=== PATIENT | female | born 1950 | race Caucasian/White ===

== ENCOUNTER 2018-03-22 20:24 | Emergency (ER) | payer MEDICARE, SELFPAY ==
[2018-03-22 20:26] VITALS: BP 181/97; PULSE 108; RESP 20; TEMP 36.7; O2SAT 98; BMI 22.4
--- NOTE | 2018-03-22 21:08 | US_ITS ---
STUDY: VENOUS DOPPLER ULTRASOUND - LEFT LOWER EXTREMITY REASON FOR EXAM: Female, 67 years old. Pain TECHNIQUE: Ultrasound evaluation of the deep vein system to include stewart-scale imaging and compression was performed. Stewart-scale imaging and Doppler sonographic evaluation, including duplex spectral analysis and qualitative color flow sonography, was performed. COMPARISON: None. FINDINGS: Common Femoral Vein: Normal compression, spontaneity and augmentation. Normal color Doppler. Common Femoral Vein/Greater Saphenous Junction: Normal compression, spontaneity and augmentation. Normal color Doppler. Deep Femoral Vein: Normal compression, spontaneity and augmentation. Normal color Doppler. Femoral Proximal: Normal compression, spontaneity and augmentation. Normal color Doppler. Femoral Middle: Normal compression, spontaneity and augmentation. Normal color Doppler. Femoral Distal: Normal compression, spontaneity and augmentation. Normal color Doppler. Popliteal Vein: Normal compression, spontaneity and augmentation. Normal color Doppler. Posterior Tibial Vein: Normal compression, spontaneity and augmentation. Normal color Doppler. Peroneal Vein: Normal compression, spontaneity and augmentation. Normal color Doppler. US/Venous Duplex Imag/Limited/Uni IMPRESSION: Normal venous Doppler ultrasound of the left lower extremity. Electronically Signed: Osmani Mary Beth, at 21:56 EDT Tel , Service support ,
--- NOTE | 2018-03-22 21:09 | ED.DCSUM_ITS ---
- ER Visit Summary Date of Service: 03/22/18 Chief Complaint: Atraumatic left lower leg lateral swelling about the ankle. History of Present Illness: The patient is a 67 F past medical history of hypertension and hypothyroidism from a prior thyroidectomy from thyroid cancer. Patient states that yesterday she noticed some minimal swelling in her left lateral ankle. Denies any fall trauma or fever. No pain with walking. Today noticed some discomfort in the posterior aspect of her left lower calf. Denies any redness. Absolutely no trauma. No prior history. No history of DVT or PE. No shortness of breath. No chest pain. She denies any recent travel, surgery, mobilization. There is no family history of clotting disorders that she is aware of. Physical Examination: Well-appearing older female. Vital signs are stable afebrile. She does not look septic or toxic. Pulse ox 90% on room air no signs of hypoxia. HEENT exam unremarkable. Neck nontender. Lungs clear to auscultation bilaterally. Heart regular rate and rhythm no murmur. Chest nontender. Abdomen soft nontender. She is moving all 4 extremities. They are neurovascularly intact. She has a strong DP pulse in her left foot. There is minimal swelling to the left lateral ankle and lower leg region. There is no calf tenderness. No cords. No significant edema. She has full range of motion to her entire left lower leg. Dorsi plantar flexion is intact. Normal touch sensation. Back exam is normal. There is no SI tenderness. Skin is normal without any rash or cellulitis. Neurologic exam normal. 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 Emergency Department Course and Treatment: Repeat exam patient is doing well. Again no signs of infection. No history of trauma and nontender. Treatment Plan: Follow-up with primary care physician. Disposition: Discharge Impression: Acute left lower leg atraumatic swelling of uncertain etiology. This note was generated with [employer] dictation software. It may contain incorrect words, spelling, and punctuation that were not noted in review of the chart prior to signing ED Disposition - Plan for ED Patient: Chief Complaint: Lower Extremity Injury Referrals: Billy Pulido III, MD [Primary Care Provider] -
--- NOTE | 2018-03-22 21:41 | ED.DEP ---
ED Disposition - Plan for ED Patient: Disposition: Home or Assisted Living Chief Complaint: Lower Extremity Injury Referrals: Billy Pulido III, MD [Primary Care Provider] - 1 Week if not improving Additional Instructions: Ultrasound of your left leg tonight showed no blood clot. Elevate your leg to decrease swelling. Call follow-up with Dr. Pulido if not improving. Return to the ER if redness or fever.
[2018-03-22 21:51] VITALS: RESP 16
--- NOTE | 2018-03-22 21:51 | ED.RN ---
REVIEWED D/C INSTRUCTIONS, FOLLOW UP CARE, AND S/S THAT WOULD WARRANT A RETURN TO THE ED WITH PT. PT VERBALIZED AN UNDERSTANDING AND DENIES FURTHER QUESTIONS FOR THIS RN. PT SKIN P/W/D, RESP EVEN AND UNLABORED, PT A&O X 3, NO DISTRESS NOTED. PT AMBULATED OUT OF ED, GAIT STEADY.
== END 2018-03-22 21:52 | disposition home or self-care (01) ==
PROVIDERS: Emergency Provider Emergency Medicine; Family Provider Family Medicine; PCP Family Medicine
DX: M79.89 Other specified soft tissue disorders (principal); I10 Essential (primary) hypertension; E03.9 Hypothyroidism, unspecified; Z85.850 Personal history of malignant neoplasm of thyroid; Z90.49 Acquired absence of other specified parts of digestive tract; Z90.710 Acquired absence of both cervix and uterus; Z79.899 Other long term (current) drug therapy
CPT/HCPCS: 93971; 99282

== ENCOUNTER 2018-08-15 11:11 | Emergency (ER) | payer MEDICARE, SELFPAY ==
[2018-08-15 11:12] VITALS: BP 154/97; PULSE 110; RESP 18; TEMP 36.6; O2SAT 98; BMI 21.0
--- NOTE | 2018-08-15 11:31 | ED.DCSUM_ITS ---
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 Patient states that she grabbed it and there was a chopper blade that was not wrapped and had lacerated her right thumb. Patient is left-hand dominant. Patient is up-to-date on tetanus. Patient is not on any blood thinners. Patient was seen at urgent care and was told she might need a stitch but they did not do those there so they advised her to come to the emergency department.] Physical Examination: [Right thumb-patient has a 1 cm laceration over the pad of the thumb with no active bleeding. She is neurovascular intact. No foreign bodies noted within the wound.] Test Results: [None indicated] Emergency Department Course and Treatment: [Patient tells me that she is afraid of needles and does not want to have a suture repair if she can avoid it. I feel it is reasonable that this does not need to be sutured. Patient will have the wound cleansed and Steri-Strips will be applied.] Treatment Plan: [Patient advised to follow-up with primary care physician in 3-5 days for wound check. patient to monitor for signs of infection such as increased redness, swelling, purulent drainage and to return if those issues developed.] Disposition: [Discharged home in stable condition] Impression: [Right thumb laceration 1 [id number] repair] This note was generated with [employer] dictation software. It may contain incorrect words, spelling, and punctuation that were not noted in review of the chart prior to signing ED Disposition - Plan for ED Patient: Chief Complaint: Laceration Referrals: Billy Pulido III, MD [Primary Care Provider] -
--- NOTE | 2018-08-15 11:31 | ED.DEP ---
ED Disposition - Plan for ED Patient: Chief Complaint: Laceration Instructions: ED Laceration Hand Referrals: Billy Pulido III, MD [Primary Care Provider] - 3-5 Days
--- OUTSIDE RECORDS SUMMARY | 2018-10-01 15:32 | XMS RPT_ITS ---
:1950 Author Organization OHIP Care Team Providers Name Role Phone CELESTE GIPSON (SMALL OFFSET PRINTER) Referring Unavailable CELESTE GIPSON (SMALL OFFSET PRINTER) Attending Unavailable CELESTE GIPSON (SMALL OFFSET PRINTER) Referring Unavailable CEBUL III, BILLY Tracey Referring Unavailable CEBUL III, BILLY Tracey Attending Unavailable CEBUL III, BILLY A Referring Unavailable CEBUL III, BILLY A Referring Unavailable CELESTE GIPSON (SMALL OFFSET PRINTER) Referring Unavailable CELESTE GIPSON (SMALL OFFSET PRINTER) Referring Unavailable CELESTE GIPSON (SMALL OFFSET PRINTER) Attending Unavailable RENZO RMAOS (PA) Attending Unavailable CEBUL III, BILLY A Referring Unavailable HARMAN SOARES Admitting Unavailable FANYHARMAN SINGER Attending Unavailable HARMAN SOARES Referring Unavailable CEBUL III, BILLY Tracey Attending Unavailable HARMAN SOARES Attending Unavailable CEBUL III, BILLY A Referring Unavailable Cebul III, Billy Primary Care Unavailable Serafin Smith Attending Unavailable Cebul III, Billy Primary Care Unavailable Fidel Alfaro Attending Unavailable PROBLEMS PROBLEMS DATE TYPE CONDITION / CODE ATTENDING STATUS SOURCE 07/09/2018 Active Encounter for NA Active [facility] screening mammogram [facility] [place] for malignant Repository neoplasm of breast / Z12.31(ICD-10) 02/20/2013 Active Postprocedural NA Active [facility] hypothyroidism / [place] E89.0(ICD-10) Repository 04/10/2018 Active Essential (primary) NA Active [facility] hypertension / [place] I10(ICD-10) Repository 04/10/2018 Active Effusion, left ankle NA Active [facility] / M25.472(ICD-10) [place] Repository 04/10/2018 Active Cough / R05(ICD-10) NA Active [facility] Repository 11/28/2017 Active Dysphagia, FANY, Active [facility] unspecified / HARMAN T [facility] R13.10(ICD-10) Repository PROCEDURES PROCEDURES No Procedure Records FoundRESULTS RESULTS DISCHARGE INSTRUCTION Observed: 08/15/2018 Status: F Source: [place] 11:32 AM [facility] Medical Records Department [address] [place] [address] Discharge Instruction 08/15/18 1131 MR#: [id number] Acct: [id number] Name: ALBA ALFARO Rep #: [id number] : 1950 68 From: Serafin Smith DO PCP: Billy Pulido III, MD Status: PRE ER ED Disposition - Plan for ED Patient: Chief Complaint: Laceration Instructions: ED Laceration Hand Referrals: Billy Pulido III, MD [Primary Care Provider] - 3-5 Days What to do if you have Problems For any increased pain, shortness of breath, bleeding, nausea or vomiting, chest pain, or any unexpected problems, contact your Primary Care Provider. Call [facility] ([phone]) or report to the closest Emergency Room. Call 911 if necessary. 08/15/18 113 <Electronically signed by Serafin Smith DO> Date Serafin Smith DO Cosigner Signature (If Indicated): Date CC: Billy Pulido III, MD EMERGENCY DEPARTMENT Observed: 08/15/2018 Status: F Source: [place] SUMMARY 11:31 AM [facility] Medical Records Department [address] [place] [address] Emergency Department Summary 08/15/18 1129 MR#: [id number] Acct: [id number] Name: ALBA ALFARO Rep #: [id number] : 1950 68 From: Serafin Smith DO PCP: Billy Pulido III, MD Status: PRE ER - ER Visit Summary Date of Service: 08/15/18 Chief Complaint: [Laceration right thumb] History of Present Illness: The patient is a 68 F [presents the emergency department complaint of a laceration to her right thumb that occurred this morning while she was on packaging a new relish blender. Patient states that she grabbed it and there was a chopper blade that was not wrapped and had lacerated her right thumb. Patient is left-hand dominant. Patient is up-to-date on tetanus. Patient is not on any blood thinners. Patient was seen at urgent care and was told she might need a stitch but they did not do those there so they advised her to come to the emergency department.] Physical Examination: [Right thumb-patient has a 1 cm laceration over the pad of the thumb with no active bleeding. She is neurovascular intact. No foreign bodies noted within the wound.] Test Results: [None indicated] Emergency Department Course and Treatment: [Patient tells me that she is afraid of needles and does not want to have a suture repair if she can avoid it. I feel it is reasonable that this does not need to be sutured. Patient will have the wound cleansed and Steri-Strips will be applied.] Treatment Plan: [Patient advised to follow-up with primary care physician in 3-5 days for wound check. patient to monitor for signs of infection such as increased redness, swelling, purulent drainage and to return if those issues developed.] Disposition: [Discharged home in stable condition] Impression: [Right thumb laceration 1 sp-Plonw-Cfbha repair] This note was generated with [employer] dictation software. It may contain incorrect words, spelling, and punctuation that were not noted in review of the chart prior to signing ED Disposition - Plan for ED Patient: Chief Complaint: Laceration Referrals: Billy Pulido III, MD [Primary Care Provider] - What to do if you have Problems For any increased pain, shortness of breath, bleeding, nausea or vomiting, chest pain, or any unexpected problems, contact your Primary Care Provider. Call [facility] ([phone]) or report to the closest Emergency Room. Call 911 if necessary. 08/15/18 1130 <Electronically signed by Serafin Smith DO> Date Serafin Smith DO Cosigner Signature (If Indicated): Date CC: Billy Pulido III, MD CNNURSE Observed: 07/31/2018 Status: COMPLETED Source: [place] 3:[address] [facility] [place] REPOSIT[facility] Nurse Visit (FAMPWS) ALBA ALFARO ([id number]) 1950 F Date Time Provider Department 07/31/18 3:15 PM [facility] During your visit today, we recorded the following information about you: Pulse Blood pressure 77/minute 115/70 Tatianna Mccoy FOOD BEVERAGE ATTENDANT 07/31/2018 3:21 PM Signed Manual Readin/80 Pulse: 78 BP Christian average: 115/70 P: 77 Repeat BP Check: 123/69 P82 #1 116/70 P76 #2 117/71 P78 #3 116/71 P78 #4 112/69 P78 #5 114/71 P77 #6 Reason for blood pressure check - Last BP elevated and Medication adjustment Patient is: Taking medication as prescribed Yes Took medication today Yes If no, date medication last taken N/A Experiencing side effects No BP was elevated at last appt 07/09/18. Was started on Losartan 25mg daily. Tolerating medication okay. Does note feeling lightheaded. Denies any chest pain, shortness of breath, or headaches. Drinks decaf usually; did have soda today. NO personal history of tobacco use; no current exposure. Alert and oriented. Pt has been identified by name and birthdate: Yes Allergies reviewed: Yes Latex allergy: no. Medication - prescribed and OTC reviewed and updated: Yes Do you need any prescription refills prior to your next visit: No Health Maintenance: Reviewed and not up to date and provider notified Patient advised to continue with current medications and would be contacted with any further instructions after review by PCP. Tatianna Mccoy LPN Referring Provider: BILLY PULIDO III [[id number]] Allergies As of Date: 07/31/2018 Noted Allergy Reaction CIPRO (CIPROFLOXACIN) 09/02/2005 10 - Anaphylaxis ESTRIOL MICRONIZED 01/29/2014 14 - Other: See Comments Comments: Chest pain, severe nausea CODEINE 02/20/2006 Comments: vomitting DARVOCET A500 (PROPOXYPHENE N-CURT*12/06/2005 11 - Vomiting Comments: also paralysis DIOVAN (VALSARTAN) 02/04/2009 7 - Swelling LISINOPRIL 05/01/2018 3 - Cough Comments: ACEI cough NORGESIC ([id number]*12/06/2005 ULTRAM (TRAMADOL HCL) 03/29/2006 10 - Anaphylaxis ZOLOFT (SERTRALINE HCL) 01/22/2007 1 - Mental Status Change Date Reviewed: 07/09/2018 Reviewed by: Aida ([facility]) BRANDON Cheung - Fully Assessed Reason for Visit: Blood Pressure Check [195] Primary Visit Diagnosis:Essential hypertension [I10] Prescriptions as of 07/31/2018 Sig: LOSARTAN 25 MG TABLET Take 1 tablet by mouth once d* LEVOTHYROXINE 100 MCG TABLET Take 1 tablet by mouth once d* HYDROCHLOROTHIAZIDE 12.5 MG C* Take 1 capsule by mouth once * CHOLECALCIFEROL (VITAMIN D3) * Take 1 tablet by mouth once d* VIACTIV 500 MG-200 UNIT-40 MC* Take one(1) tablet two(2) laura* Problem List As Of Date 07/31/2018 Noted Resolved Rheumatoid arthritis (HCC) [M06.9] IRRITABLE COLON [K58.9] INVALID FOR* PRIMARY HYPERPARATHYROIDISM [E21.0] INVALID FOR*06/23/2008 Calcaneal spur [M77.30] INVALID FOR*05/23/2016 History of thyroid cancer [Z85.850] INVALID FOR* More... Hearing loss in left ear [H91.92] INVALID FOR* Tinnitus [H93.19] INVALID FOR* Hypertension [I10] INVALID FOR* Symptomatic menopausal or female climacteric st*INVALID FOR* Postsurgical hypothyroidism [E89.0] INVALID FOR* Vitamin D deficiency [E55.9] INVALID FOR* Bilateral impacted cerumen [H61.23] INVALID FOR*05/23/2016 Encounter Status:Closed by TATIANNA MCCOY LPN on 07/31/18 PROGRESS Observed: 07/31/2018 Status: COMPLETED Source: [place] 3:07 PM [facility] RE[facility] HNO ID: [id number] Author: Tatianna Mccoy LPN Service: (none) Author Type: (none) Type: Progress Notes Filed: 07/31/2018 3:21 PM Note Text: Manual Readin/80 Pulse: 78 BP Christian average: 115/70 P: 77 Repeat BP Check: 123/69 P82 #1 116/70 P76 #2 117/71 P78 #3 116/71 P78 #4 112/69 P78 #5 114/71 P77 #6 Reason for blood pressure check - Last BP elevated and Medication adjustment Patient is: Taking medication as prescribed Yes Took medication today Yes If no, date medication last taken N/A Experiencing side effects No BP was elevated at last appt 07/09/18. Was started on Losartan 25mg daily. Tolerating medication okay. Does note feeling lightheaded. Denies any chest pain, shortness of breath, or headaches. Drinks decaf usually; did have soda today. NO personal history of tobacco use; no current exposure. Alert and oriented. Pt has been identified by name and birthdate: Yes Allergies reviewed: Yes Latex allergy: no. Medication - prescribed and OTC reviewed and updated: Yes Do you need any prescription refills prior to your next visit: No Health Maintenance: Reviewed and not up to date and provider notified Patient advised to continue with current medications and would be contacted with any further instructions after review by PCP. Tatianna Mccoy LPN PROGRESS Observed: 07/09/2018 Status: COMPLETED Source: [place] 4:[address] [facility] [place] RE[facility]IT[facility] HNO ID: [id number] Author: Billy Pulido III Service: (none) Author Type: Physician Type: Progress Notes Filed: 07/09/2018 9:28 PM Note Text: SUBJECTIVE: This is a 68 year old female that is here today for 1. lightheaded episodes over past wk. head in a cloud--worse after lifting head up from flexed head. 2. Has ch problems sleeping for mos. Melatonin w/o benefit. 3. s/p hysterectomy , ovaries remain. Had been on estrogen replacement for many yrs , though it was d/c ed several yrs ago. PAST MEDICAL HISTORY Diagnosis Date - Disorder of bone and cartilage, unspecified - Essential hypertension, benign 09/15/2011 - Hearing loss in left ear 09/15/2011 - Hemorrhage of rectum and anus - Malignant neoplasm of thyroid gland (HCC) - Mental disorder - Myalgia and myositis, unspecified - Rheumatoid arthritis(714.0) - Vitamin D deficiency 11/27/2014 Current Outpatient Prescriptions on File Prior to Visit: levothyroxine (SYNTHROID) 100 mcg tablet Take 1 tablet by mouth once daily. Take on empty stomach Hydrochlorothiazide 12.5 mg capsule Take 1 capsule by mouth once daily. Cholecalciferol, Vitamin D3, 2,000 unit cap Take 1 tablet by mouth once daily. ca carbonate/vitamin d3/vit k(VIACTIV 500 MG-200 UNIT-40 MCG TAB) Take one(1) tablet two(2) times daily. No current facility-administered medications on file prior to visit. FAMILY HISTORY Problem Relation Age of Onset - Colon Cancer Brother Colon CA not primary - Cancer Father LUNG- at age 57 Social History Substance Use Topics - Smoking status: Never Smoker - Smokeless tobacco: Never Used - Alcohol use No BP 143/87 Pulse 85 Resp 16 Wt 54 kg (119 lb) BMI 20.43 kg/m? . OBJECTIVE: APPEARANCE Well appearing, alert, in no acute distress, well-hydrated, well nourished. EYES PERRLA, conjunctiva and sclera normal. EARS Cerumen impaction bilaterally NECK Supple, no adenopathy; thyroid symmetric, normal size, no bruits HEART RRR with normal S1 and S2, no murmurs, no gallops, no JVD appreciated LUNG clear to auscultation NEURO Awake, alert and oriented x 3, Normal gait and No involuntary motions. Lab Results for ALBA ALFARO ( ) as of 07/09/2018 16:52 Ref. Range 06/26/2018 08:10 06/26/2018 08:11 Sodium Latest Ref Range: 136 - 144 mmol/L 138 Potassium Latest Ref Range: 3.7 - 5.1 mmol/L 3.7 Chloride Latest Ref Range: 97 - 105 mmol/L 100 CO2 Latest Ref Range: 22 - 30 mmol/L 27 BUN Latest Ref Range: 7 - 21 mg/dL 11 Creatinine Latest Ref Range: 0.58 - 0.96 mg/dL 0.44 (L) Glucose Latest Ref Range: 74 - 99 mg/dL 110 (H) Calcium Latest Ref Range: 8.5 - 10.2 mg/dL 9.8 Anion Gap Latest Units: mmol/L 11 eGFR- Unknown >60 eGFR-All Other Races Latest Units: . >60 Free T4 Latest Ref Range: 0.9 - 1.7 ng/dL 1.6 TSH Latest Ref Range: 0.400 - 5.500 uU/mL 1.570 ASSESSMENT: Cerumen impaction bilaterally Chronic insomnia with anxiety Hypertension PLAN: add losartan 25mg daily--nurse bp check in 2 wks ear lavage bilaterally--successful without complication try to eat less sugar and avoid skipping meals same other medications Billy Pulido III MD CNOV Observed: 07/09/2018 Status: COMPLETED Source: [place] 4:20 PM [facility] REPOSITORY Office Visit (FAMPWS) ALBA ALFARO ([id number]) 1950 F Date Time Provider Department 07/09/18 4:20 PM BILLY PULIDO III During your visit today, we recorded the following information about you: Pulse Respiration Blood pressure Weight 85/minute 16/minute 143/87 54 kg Billy Pulido III MD 07/09/2018 9:28 PM Signed SUBJECTIVE: This is a 68 year old female that is here today for 1. lightheaded episodes over past wk. head in a cloud--worse after lifting head up from flexed head. 2. Has ch problems sleeping for mos. Melatonin w/o benefit. 3. s/p hysterectomy , ovaries remain. Had been on estrogen replacement for many yrs , though it was d/c ed several yrs ago. PAST MEDICAL HISTORY Diagnosis Date - Disorder of bone and cartilage, unspecified - Essential hypertension, benign 09/15/2011 - Hearing loss in left ear 09/15/2011 - Hemorrhage of rectum and anus - Malignant neoplasm of thyroid gland (HCC) - Mental disorder - Myalgia and myositis, unspecified - Rheumatoid arthritis(714.0) - Vitamin D deficiency 11/27/2014 Current Outpatient Prescriptions on File Prior to Visit: levothyroxine (SYNTHROID) 100 mcg tablet Take 1 tablet by mouth once daily. Take on empty stomach Hydrochlorothiazide 12.5 mg capsule Take 1 capsule by mouth once daily. Cholecalciferol, Vitamin D3, 2,000 unit cap Take 1 tablet by mouth once daily. ca carbonate/vitamin d3/vit k(VIACTIV 500 MG-200 UNIT-40 MCG TAB) Take one(1) tablet two(2) times daily. No current facility-administered medications on file prior to visit. FAMILY HISTORY Problem Relation Age of Onset - Colon Cancer Brother Colon CA not primary - Cancer Father LUNG- at age 57 Social History Substance Use Topics - Smoking status: Never Smoker - Smokeless tobacco: Never Used - Alcohol use No BP 143/87 Pulse 85 Resp 16 Wt 54 kg (119 lb) BMI 20.43 kg/m? . OBJECTIVE: APPEARANCE Well appearing, alert, in no acute distress, well- hydrated, well nourished. EYES PERRLA, conjunctiva and sclera normal. EARS Cerumen impaction bilaterally NECK Supple, no adenopathy; thyroid symmetric, normal size, no bruits HEART RRR with normal S1 and S2, no murmurs, no gallops, no JVD appreciated LUNG clear to auscultation NEURO Awake, alert and oriented x 3, Normal gait and No involuntary motions. Lab Results for ALBA ALFARO ( ) as of 07/09/2018 16:52 Ref. Range 06/26/2018 08:10 06/26/2018 08:11 Sodium Latest Ref Range: 136 - 144 mmol/L 138 Potassium Latest Ref Range: 3.7 - 5.1 mmol/L 3.7 Chloride Latest Ref Range: 97 - 105 mmol/L 100 CO2 Latest Ref Range: 22 - 30 mmol/L 27 BUN Latest Ref Range: 7 - 21 mg/dL 11 Creatinine Latest Ref Range: 0.58 - 0.96 mg/dL 0.44 (L) Glucose Latest Ref Range: 74 - 99 mg/dL 110 (H) Calcium Latest Ref Range: 8.5 - 10.2 mg/dL 9.8 Anion Gap Latest Units: mmol/L 11 eGFR- Unknown >60 eGFR-All Other Races Latest Units: . >60 Free T4 Latest Ref Range: 0.9 - 1.7 ng/dL 1.6 TSH Latest Ref Range: 0.400 - 5.500 uU/mL 1.570 ASSESSMENT: Cerumen impaction bilaterally Chronic insomnia with anxiety Hypertension PLAN: add losartan 25mg daily--nurse bp check in 2 wks ear lavage bilaterally--successful without complication try to eat less sugar and avoid skipping meals same other medications FABIO Rachel MD, III MD 07/09/2018 5:01 PM Signed PLAN: add losartan 25mg daily--nurse bp check in 2 wks ear lavage bilaterally try to eat less sugar and avoid skipping meals same other medications Billy Pulido III MD Referring Provider: SELF [[id number]] Allergies As of Date: 07/09/2018 Noted Allergy Reaction CIPRO (CIPROFLOXACIN) 09/02/2005 10 - Anaphylaxis ESTRIOL MICRONIZED 01/29/2014 14 - Other: See Comments Comments: Chest pain, severe nausea CODEINE 02/20/2006 Comments: vomitting DARVOCET A500 (PROPOXYPHENE N-CURT*12/06/2005 11 - Vomiting Comments: also paralysis DIOVAN (VALSARTAN) 02/04/2009 7 - Swelling LISINOPRIL 05/01/2018 3 - Cough Comments: ACEI cough NORGESIC ([id number]*12/06/2005 ULTRAM (TRAMADOL HCL) 03/29/2006 10 - Anaphylaxis ZOLOFT (SERTRALINE HCL) 01/22/2007 1 - Mental Status Change Date Reviewed: 07/09/2018 Reviewed by: Aida ([facility]) BRANDON Cheung - Fully Assessed Reason for Visit: Dizziness [36] Cmt: x1 week, intermittent Primary Visit Diagnosis:Essential hypertension [I10] Other Visit Diagnoses:Episodic lightheadedness [R42] Bilateral impacted cerumen [H61.23] Order(s):losartan (COZAAR) 25 mg tabletTake 1 tablet by mouth once daily.Disp: 30 tabletRfl: 11 Prescriptions as of 07/09/2018 Sig: LOSARTAN 25 MG TABLET Take 1 tablet by mouth once d* LEVOTHYROXINE 100 MCG TABLET Take 1 tablet by mouth once d* HYDROCHLOROTHIAZIDE 12.5 MG C* Take 1 capsule by mouth once * CHOLECALCIFEROL (VITAMIN D3) * Take 1 tablet by mouth once d* VIACTIV 500 MG-200 UNIT-40 MC* Take one(1) tablet two(2) laura* Problem List As Of Date 07/09/2018 Noted Resolved Rheumatoid arthritis (HCC) [M06.9] IRRITABLE COLON [K58.9] INVALID FOR* PRIMARY HYPERPARATHYROIDISM [E21.0] INVALID FOR*06/23/2008 Calcaneal spur [M77.30] INVALID FOR*05/23/2016 History of thyroid cancer [Z85.850] INVALID FOR* More... Hearing loss in left ear [H91.92] INVALID FOR* Tinnitus [H93.19] INVALID FOR* Hypertension [I10] INVALID FOR* Symptomatic menopausal or female climacteric st*INVALID FOR* Postsurgical hypothyroidism [E89.0] INVALID FOR* Vitamin D deficiency [E55.9] INVALID FOR* Bilateral impacted cerumen [H61.23] INVALID FOR*05/23/2016 Other instructions from your clinician: PLAN: add losartan 25mg daily--nurse bp check in 2 wks ear lavage bilaterally try to eat less sugar and avoid skipping meals same other medications Billy Pulido III MD Prescriptions ordered this encounter Disp Refills Start End LOSARTAN 25 MG TABLET 30 t* 11 07/09/2018 Route: ORAL Sig: Take 1 tablet by mouth once daily. Medications Discontinued During This Encounter triamcinolone acetonide (KENALOG) 0.* 30 g 0 04/10/2018 07/09/2018 Route: TOPICAL Sig: Apply 1 application to affected area three times daily. Apply sparingly to area for rash/itching. Disc: Discontinued by Patient ibuprofen (MOTRIN) 600 mg tablet 50 t* 1 04/23/2018 07/09/2018 Route: ORAL Sig: Take 1 tablet by mouth every 6 hours as needed for Pain. Disc: Discontinued by Patient Encounter Status:Closed by BILLY PULIDO III, MD on 07/09/18 CNCO Observed: 07/09/2018 Status: COMPLETED Source: [place] 9:58 AM [facility] REPOSITORY O ID: [id number] Author: Mammography Coordinator Service: (none) Author Type: Physician Type: Letter Filed: 07/10/2018 11:32 PM Note Text: July 09, 2018 PID: [id number] Alba Alfaro [address] [place] [address] Dear Ms. Alfaro, We are pleased to inform you that the results of your recent breast imaging exam on 07/09/2018 are normal. Early detection of cancer is very important. We also understand recommendations regarding breast cancer screening are controversial. Please discuss with your primary care provider which strategy is best for you and whether a mammogram is right for you. Your imaging studies and report will be kept on file at [facility] as part of your permanent medical record and are available for your continuing care. Thank you for allowing us to help in meeting your health care needs. Sincerely, Dr. Verdugo Interpreting Radiologist [facility] (Normal over 40) SHARYN SCREENING Observed: 07/09/2018 Status: F Source: [place] 7:36 AM [facility] REPOSITORY * * *Final Report* * * DATE OF EXAM: Jul 09 2018 7:36AM [facility] 0581 - [facility] SCREENING / PROCEDURE REASON: Screening breast examination * * * * Physician Interpretation * * * * RESULT: #[id number] - [facility] SCREENING BILATERAL DIGITAL SCREENING MAMMOGRAM WITH CAD: 07/09/2018 HISTORY: Screening Breast Examination. RESULT: TECHNIQUE: The study was acquired using full field digital technology and interpreted from soft copy. Current study was also evaluated with a Computer Aided Detection (CAD). Comparison is made to exams dated: 06/19/2017 mammogram, 06/07/2016 mammogram - [facility], 05/24/2016 mammogram, 08/15/2014 mammogram, 07/02/2013 mammogram, and 06/06/2012 mammogram - [facility]. There are scattered fibroglandular elements in both breasts. No significant masses, calcifications, or other findings are seen in either breast. There has been no significant interval change. IMPRESSION: NEGATIVE There is no mammographic evidence of malignancy. A 1 year screening mammogram is recommended. The exam was reviewed by a staff physician. nida Carpenter M.D., M.D./zain:07/09/2018 09:58:02 Link Trainer Mechanic: Mackenzie CLEMENTE (R)), [facility] letter sent: Normal over 40 Mammogram BI-RADS: 1 Negative Multiple national specialty organizations have released breast cancer screening guidelines for women at average risk for developing breast cancer - guidelines that are based on both evidence and opinion, yet differ on when to start and how often to screen for breast cancer. With representation from Breast Imaging, Internal Medicine, Women's Health, Family Medicine, and Medical/Surgical Oncology, the [facility] has carefully reviewed the data and reached the following consensus: 1) All women should engage in shared decision-making with their providers to decide when to start and how often to screen; 2) All women should have the opportunity to start screening mammography at age 40; 3) For women ages 45-55, we recommend annual screening mammograms; 4) For women ages 55 and over, we support both the transition from an annual to a biennial interval if this aligns more with patient's values and preferences, or continuation with annual screening; 5) All women should discuss with their providers when to stop screening mammograms. Flight Information Expediter: Zain Transcribe Date/Time: Jul 09 2018 7:24A Dictated by: CHA FARMER MD This examination was interpreted and the report reviewed and electronically signed by: PADMINI VERDUGO MD on Jul 09 2018 9:58AM EST [id number] PROGRESS Observed: 06/26/2018 Status: COMPLETED Source: [place] 6:[address] [facility] REPOSITORY HNO ID: [id number] Author: Billy Pulido III Service: (none) Author Type: Physician Type: Progress Notes Filed: 06/26/2018 6:57 PM Note Text: Alba, The blood sugar is a little high so I recommend healthy weight losing diet and regular exercise eat less sugar, bread, potato, pasta, rice, corn, corn syrup, saturated fats The other lab results are normal. May recheck fasting blood sugar in 6-12 months. Billy Pulido III, MD, FAAFP BASIC METABOLIC PANL Collected: 06/26/2018 Status: F Source: [place] 8:11 AM [facility] REPOSITORY TYPE CODE TESTS RESULT OUT OF REFERENCE UNITS RANGE LAB GLU 74-99 mg/dL Glucose High 110 LAB BUN 7-21 mg/dL BUN 11 LAB CRET 0.58-0.96 mg/dL Low Creatinine 0.44 LAB NA 136-144 mmol/L Sodium 138 LAB K 3.7-5.1 mmol/L Potassium 3.7 LAB CL 97-105 mmol/L Chloride 100 LAB CO2 22-30 mmol/L CO2 27 LAB AGAP mmol/L Anion Gap 11 LAB CA 8.5-10.2 mg/dL Calcium, Total 9.8 LAB GFRAA eGFR- >60 Amer. LAB GFRNAA . eGFR-All Other Races >60 Result Comment: eGFR (Estimated GFR) Units of measure: mL/min/1.73 meters squared eGFR is derived from the reexpressed MDRD Study equation using the following parameters: serum creatinine, age, gender and race. The creatinine assay has been calibrated to be traceable to IDMS. An eGFR <60 mL/min/1.73m2 for >3 months is consistent with chronic kidney disease. Refer to KDOQI guidelines for clinical interpretation. In patients with unstable renal function, e.g. those with acute kidney injury, the eGFR may not accurately reflect actual GFR. TSH Collected: 06/26/2018 Status: F Source: [place] 8:10 AM [facility] REPOSITORY TYPE CODE TESTS RESULT OUT OF RANGE REFERENCE UNITS LAB TSH 0.400-5.500 uU/mL TSH 1.570 Performed By: #### TSH, FT4 #### [facility] [address], [place] [address] FREE T4 Collected: 06/26/2018 Status: F Source: [place] 8:10 AM [facility] REPOSITORY TYPE CODE TESTS RESULT OUT OF RANGE REFERENCE UNITS LAB FT4 0.9-1.7 ng/dL Free T4 1.6 Performed By: #### TSH, FT4 #### [facility] [address], [place] [address] CNOV Observed: 06/26/2018 Status: COMPLETED Source: [place] 8:00 AM [facility] REPOSITORY Office Visit (LABMOB) ALBA ALFARO ([id number]) 1950 F Date Time Provider Department 06/26/18 8:00 AM LAB [facility] M[facility] LABMOB During your visit today, we recorded the following information about you: Billy Pulido III MD 06/26/2018 6:57 PM Signed Alba, The blood sugar is a little high so I recommend healthy weight losing diet and regular exercise eat less sugar, bread, potato, pasta, rice, corn, corn syrup, saturated fats The other lab results are normal. May recheck fasting blood sugar in 6-12 months. Billy Pulido III, MD, FAAFP Referring Provider: BILLY PULIDO III [[id number]] Allergies As of Date: 06/26/2018 Noted Allergy Reaction CIPRO (CIPROFLOXACIN) 09/02/2005 10 - Anaphylaxis ESTRIOL MICRONIZED 01/29/2014 14 - Other: See Comments Comments: Chest pain, severe nausea CODEINE 02/20/2006 Comments: vomitting DARVOCET A500 (PROPOXYPHENE N-CURT*12/06/2005 11 - Vomiting Comments: also paralysis DIOVAN (VALSARTAN) 02/04/2009 7 - Swelling LISINOPRIL 05/01/2018 3 - Cough Comments: ACEI cough NORGESIC ([id number]-[id number]*12/06/2005 ULTRAM (TRAMADOL HCL) 03/29/2006 10 - Anaphylaxis ZOLOFT (SERTRALINE HCL) 01/22/2007 1 - Mental Status Change Date Reviewed: 05/01/2018 Reviewed by: Sravani Boogie LPN - Fully Assessed Visit Diagnoses:Postsurgical hypothyroidism [E89.0] Essential hypertension [I10] Order(s):TSH BLD [SQTSH] Order #: [id number]. #:[id number] [id number] FREE/FREE THYROX [SQFT4] Order #: [id number]. #:[id number] BASIC METABOLIC PNL [SQBMP] Order #: [id number]. #:[id number] Prescriptions as of 06/26/2018 Sig: IBUPROFEN 600 MG TABLET Take 1 tablet by mouth every * LEVOTHYROXINE 100 MCG TABLET Take 1 tablet by mouth once d* TRIAMCINOLONE ACETONIDE 0.1 %* Apply 1 application to affect* HYDROCHLOROTHIAZIDE 12.5 MG C* Take 1 capsule by mouth once * CHOLECALCIFEROL (VITAMIN D3) * Take 1 tablet by mouth once d* VIACTIV 500 MG-200 UNIT-40 MC* Take one(1) tablet two(2) laura* Problem List As Of Date 06/26/2018 Noted Resolved Rheumatoid arthritis (HCC) [M06.9] IRRITABLE COLON [K58.9] INVALID FOR* PRIMARY HYPERPARATHYROIDISM [E21.0] INVALID FOR*06/23/2008 Calcaneal spur [M77.30] INVALID FOR*05/23/2016 History of thyroid cancer [Z85.850] INVALID FOR* More... Hearing loss in left ear [H91.92] INVALID FOR* Tinnitus [H93.19] INVALID FOR* Hypertension [I10] INVALID FOR* Symptomatic menopausal or female climacteric st*INVALID FOR* Postsurgical hypothyroidism [E89.0] INVALID FOR* Vitamin D deficiency [E55.9] INVALID FOR* Bilateral impacted cerumen [H61.23] INVALID FOR*05/23/2016 Encounter Status:Closed by BILLY PULIDO III, MD on 06/27/18 CNNURSE Observed: 06/04/2018 Status: COMPLETED Source: [place] 1:30 PM [facility] REPOSITORY Nurse Visit (FAMPWS) ALBA ALFARO ([id number]) 1950 F Date Time Provider Department 06/04/18 1:30 PM [facility] NURSE FAMPWS During your visit today, we recorded the following information about you: Pulse Blood pressure 96/minute 116/73 Tatianna Mccoy LPN 06/04/2018 1:42 PM Signed Manual Readin/86 Pulse: 92 BP Christian average: 116/73 P: 96 Repeat BP Check: 124/75 P93 #1 109/73 P95 #2 125/73 P95 #3 109/74 P95 #4 113/76 P97 #5 125/71 P96 #6 Reason for blood pressure check - Last BP elevated Patient is: Taking medication as prescribed Yes Took medication today Yes If no, date medication last taken N/A Experiencing side effects No BP was borderline elevated at last appt with Celeste Gipson NP, on 05/01/18. Had medication changed on 04/10/18; was having cough with the Lisinopril portion of combo medication. Has since been only taking the HCTZ 12.5mg daily. Tolerating medication well. Does state that she only has mild cough; mostly at night or when laying down. Denies any chest pain, shortness of breath, dizziness, or headaches. Drinks decaf. No personal history of tobacco use; no current exposure. Alert and oriented. Pt has been identified by name and birthdate: Yes Allergies reviewed: Yes Latex allergy: no. Medication - prescribed and OTC reviewed and updated: Yes Do you need any prescription refills prior to your next visit: No Health Maintenance: Reviewed and not up to date and provider notified Patient advised to continue with current medications and would be contacted with any further instructions after review by Celeste Gipson NP. Tatianna Mccoy LPN Referring Provider: CELESTE GIPSON (TIMUR) [[id number]] Allergies As of Date: 06/04/2018 Noted Allergy Reaction CIPRO (CIPROFLOXACIN) 09/02/2005 10 - Anaphylaxis ESTRIOL MICRONIZED 01/29/2014 14 - Other: See Comments Comments: Chest pain, severe nausea CODEINE 02/20/2006 Comments: vomitting DARVOCET A500 (PROPOXYPHENE N-CURT*12/06/2005 11 - Vomiting Comments: also paralysis DIOVAN (VALSARTAN) 02/04/2009 7 - Swelling LISINOPRIL 05/01/2018 3 - Cough Comments: ACEI cough NORGESIC ([id number]*12/06/2005 ULTRAM (TRAMADOL HCL) 03/29/2006 10 - Anaphylaxis ZOLOFT (SERTRALINE HCL) 01/22/2007 1 - Mental Status Change Date Reviewed: 05/01/2018 Reviewed by: Sravani Boogie LPN - Fully Assessed Reason for Visit: Blood Pressure Check [195] Primary Visit Diagnosis:Essential hypertension [I10] Prescriptions as of 06/04/2018 Sig: IBUPROFEN 600 MG TABLET Take 1 tablet by mouth every * LEVOTHYROXINE 100 MCG TABLET Take 1 tablet by mouth once d* TRIAMCINOLONE ACETONIDE 0.1 %* Apply 1 application to affect* HYDROCHLOROTHIAZIDE 12.5 MG C* Take 1 capsule by mouth once * CHOLECALCIFEROL (VITAMIN D3) * Take 1 tablet by mouth once d* VIACTIV 500 MG-200 UNIT-40 MC* Take one(1) tablet two(2) laura* Problem List As Of Date 06/04/2018 Noted Resolved Rheumatoid arthritis (HCC) [M06.9] IRRITABLE COLON [K58.9] INVALID FOR* PRIMARY HYPERPARATHYROIDISM [E21.0] INVALID FOR*06/23/2008 Calcaneal spur [M77.30] INVALID FOR*05/23/2016 History of thyroid cancer [Z85.850] INVALID FOR* More... Hearing loss in left ear [H91.92] INVALID FOR* Tinnitus [H93.19] INVALID FOR* Hypertension [I10] INVALID FOR* Symptomatic menopausal or female climacteric st*INVALID FOR* Postsurgical hypothyroidism [E89.0] INVALID FOR* Vitamin D deficiency [E55.9] INVALID FOR* Bilateral impacted cerumen [H61.23] INVALID FOR*05/23/2016 Encounter Status:Closed by TATIANNA MCCOY LPN on 06/04/18 PROGRESS Observed: 06/04/2018 Status: COMPLETED Source: [place] 1:[address] [facility] REPOSITORY O ID: [id number] Author: Tatianna Mccoy LPN Service: (none) Author Type: (none) Type: Progress Notes Filed: 06/04/2018 1:42 PM Note Text: Manual Readin/86 Pulse: 92 BP Christian average: 116/73 P: 96 Repeat BP Check: 124/75 P93 #1 109/73 P95 #2 125/73 P95 #3 109/74 P95 #4 113/76 P97 #5 125/71 P96 #6 Reason for blood pressure check - Last BP elevated Patient is: Taking medication as prescribed Yes Took medication today Yes If no, date medication last taken N/A Experiencing side effects No BP was borderline elevated at last appt with Celeste Gipson NP, on 05/01/18. Had medication changed on 04/10/18; was having cough with the Lisinopril portion of combo medication. Has since been only taking the HCTZ 12.5mg daily. Tolerating medication well. Does state that she only has mild cough; mostly at night or when laying down. Denies any chest pain, shortness of breath, dizziness, or headaches. Drinks decaf. No personal history of tobacco use; no current exposure. Alert and oriented. Pt has been identified by name and birthdate: Yes Allergies reviewed: Yes Latex allergy: no. Medication - prescribed and OTC reviewed and updated: Yes Do you need any prescription refills prior to your next visit: No Health Maintenance: Reviewed and not up to date and provider notified Patient advised to continue with current medications and would be contacted with any further instructions after review by Celeste Gipson NP. Tatianna Darius FRANCO PROGRESS Observed: 05/01/2018 Status: COMPLETED Source: [place] 7:[address] [facility] REPOSITORY O ID: [id number] Author: Celeste Javed (Timur) Brandan Service: (none) Author Type: Nurse Practitioner Type: Progress Notes Filed: 05/01/2018 8:12 AM Note Text: Chief Complaint Patient presents with: Recheck: left ankle edema, bp and cough HPI Alba Alfaro is a 67 year old female who presents here today for Above Complaints. Recheck cough and BP. Last visit medication adjustment done due to ACEI cough with Lisinopril. Was not able to speak in complete sentences due to Cough unrelated to illness. Since stopping Lisinopril she's noticed significant improvement in her cough. Still occasional dry cough at night. She maintains on HCTZ. Tolerating well, denies side effects. Left ankle edema: resolved, no pain. Left arm pain: last visit received Tdap left deltoid. Since then she has had significant left arm pain, difficulty moving due to pain. Has been taking NSAIDs on regular basis with mild benefit. The ROS is otherwise negative. Past medical history, appointments, medications, allergies reviewed. Patient Allergies ALLERGIES Allergen Reactions - Cipro [Ciprofloxaci* Anaphylaxis - Estriol Micronized Other: See Comments Chest pain, severe nausea - Codeine vomitting - Darvocet A500 [Prop* Vomiting also paralysis - Diovan [Valsartan] Swelling - Norgesic [Orphenadr* - Ultram [Tramadol Hc* Anaphylaxis - Zoloft [Sertraline * Mental Status Change Current Medications Current Outpatient Prescriptions on File Prior to Visit: ibuprofen (MOTRIN) 600 mg tablet Take 1 tablet by mouth every 6 hours as needed for Pain. levothyroxine (SYNTHROID) 100 mcg tablet Take 1 tablet by mouth once daily. Take on empty stomach triamcinolone acetonide (KENALOG) 0.1 % cream Apply 1 application to affected area three times daily. Apply sparingly to area for rash/itching. Hydrochlorothiazide 12.5 mg capsule Take 1 capsule by mouth once daily. Cholecalciferol, Vitamin D3, 2,000 unit cap Take 1 tablet by mouth once daily. ca carbonate/vitamin d3/vit k(VIACTIV 500 MG-200 UNIT-40 MCG TAB) Take one(1) tablet two(2) times daily. lansoprazole (PREVACID) 30 mg capsule Take 1 capsule by mouth once daily. No current facility-administered medications on file prior to visit. Previous Medical History PAST MEDICAL HISTORY Diagnosis Date - Disorder of bone and cartilage, unspecified - Essential hypertension, benign 09/15/2011 - Hearing loss in left ear 09/15/2011 - Hemorrhage of rectum and anus - Malignant neoplasm of thyroid gland (HCC) - Mental disorder - Myalgia and myositis, unspecified - Rheumatoid arthritis(714.0) - Vitamin D deficiency 11/27/2014 Previous Surgical History PAST SURGICAL HISTORY Procedure Laterality Date - COLONOSCOP W/ OR W/O [facility] SPEC 05/28/2007 Colonoscopy-repeat in - EGD W/O OR W/BRUSH/WASH 11/28/2017 reflux esophagitis, repeat EGD in 2-3 years - PAST SURGICAL HISTORY OF breast cyst - PAST SURGICAL HISTORY OF partial resection right foot- 3rd toe - REMOVAL GALLBLADDER '01 or '02 ?? - REMOVAL OF TONSILS,<12 Y/O - THYROIDECTOMY 05/03/01 - TOTAL ABDOM HYSTERECTOMY Family History FAMILY HISTORY Problem Relation Age of Onset - Colon Cancer Brother Colon CA not primary - Cancer Father LUNG- at age 57 Social History Social History Marital status: Spouse name: Years of education: Number of children: Social History Main Topics Smoking status: Never Smoker Smokeless tobacco: Never Used Alcohol use: No Drug use: No Sexual activity: Not Currently EXAM: BP 132/80 (BP Site: Right Arm, BP Position: Sitting, BP Cuff Size: Regular Adult) Temp 36.4 ?C (97.5 ?F) (Tympanic) Resp 16 Wt 56.7 kg (125 lb) BMI 21.46 kg/m? General Appearance: Well appearing, alert, in no acute distress, well-hydrated, well nourished.. Neck: Supple, no adenopathy; thyroid symmetric, normal size, Lungs: Lungs clear to auscultation. No wheezing, rhonchi, rales. No cough noted throughout visit Heart: RRR without murmur, gallop, or rubs. No ectopy. Extremities: No deformities, edema, skin discoloration, clubbing or cyanosis. Good capillary refill. + pain with abduction, able to lift arm to shoulder level. ASSESSMENT/PLAN: 1. Arm pain, musculoskeletal, left - ICD9: 729.5, ICD10: M79.602 (primary diagnosis) - Will do short prednisone burst, may use Tylenol and hold Ibuprofen while taking Prednisone. Then if needed my resume Ibuprofen. - Call if sx persist, may consider PHYSICAL THERAPY. - PREDNISONE 20 MG TABLET 2. Essential hypertension - ICD9: 401.9, ICD10: I10 - fair control - Continue current medication(s) - Recommended regular aerobic exercise. - Recommend home blood pressure monitoring, to bring results in on next visit - Recheck in 1 month, sooner should new symptoms or problems arise. Nurse visit - Goal of BP <130/80 3. Cough - ICD9: 786.2, ICD10: R05 - Resolving Celeste Gipson, MSN HOOKER MACHINE TENDER.CARE ASSISTANT CNOV Observed: 05/01/2018 Status: COMPLETED Source: [place] 7:40 AM [facility] REPOSITORY [facility] ALBA ALF[facility]O ([id number]) 1950 F Date Time Provider Department 05/01/18 7:40 AM CELESTE GIPSON (SMALL OFFSET PRINTER) ERVIN During your visit today, we recorded the following information about you: Temperature Respiration Blood pressure Weight 97.5 degrees 16/minute 132/80 56.7 kg Celeste Gipson, MSN [employer]OOK[employer] MACHINE TENDER.CARE ASSISTANT 05/01/2018 8:12 AM Signed Chief Complaint Patient presents with: Recheck: left ankle edema, bp and cough HPI Alba Alfaro is a 67 year old female who presents here today for Above Complaints. Recheck cough and BP. Last visit medication adjustment done due to ACEI cough with Lisinopril. Was not able to speak in complete sentences due to Cough unrelated to illness. Since stopping Lisinopril she's noticed significant improvement in her cough. Still occasional dry cough at night. She maintains on HCTZ. Tolerating well, denies side effects. Left ankle edema: resolved, no pain. Left arm pain: last visit received Tdap left deltoid. Since then she has had significant left arm pain, difficulty moving due to pain. Has been taking NSAIDs on regular basis with mild benefit. The ROS is otherwise negative. Past medical history, appointments, medications, allergies reviewed. Patient Allergies ALLERGIES Allergen Reactions - Cipro [Ciprofloxaci* Anaphylaxis - Estriol Micronized Other: See Comments Chest pain, severe nausea - Codeine vomitting - Darvocet A500 [Prop* Vomiting also paralysis - Diovan [Valsartan] Swelling - Norgesic [Orphenadr* - Ultram [Tramadol Hc* Anaphylaxis - Zoloft [Sertraline * Mental Status Change Current Medications Current Outpatient Prescriptions on File Prior to Visit: ibuprofen (MOTRIN) 600 mg tablet Take 1 tablet by mouth every 6 hours as needed for Pain. levothyroxine (SYNTHROID) 100 mcg tablet Take 1 tablet by mouth once daily. Take on empty stomach triamcinolone acetonide (KENALOG) 0.1 % cream Apply 1 application to affected area three times daily. Apply sparingly to area for rash/itching. Hydrochlorothiazide 12.5 mg capsule Take 1 capsule by mouth once daily. Cholecalciferol, Vitamin D3, 2,000 unit cap Take 1 tablet by mouth once daily. ca carbonate/vitamin d3/vit k(VIACTIV 500 MG-200 UNIT-40 MCG TAB) Take one(1) tablet two(2) times daily. lansoprazole (PREVACID) 30 mg capsule Take 1 capsule by mouth once daily. No current facility-administered medications on file prior to visit. Previous Medical History PAST MEDICAL HISTORY Diagnosis Date - Disorder of bone and cartilage, unspecified - Essential hypertension, benign 09/15/2011 - Hearing loss in left ear 09/15/2011 - Hemorrhage of rectum and anus - Malignant neoplasm of thyroid gland (HCC) - Mental disorder - Myalgia and myositis, unspecified - Rheumatoid arthritis(714.0) - Vitamin D deficiency 11/27/2014 Previous Surgical History PAST SURGICAL HISTORY Procedure Laterality Date - COLONOSCOP W/ OR W/O [facility] SPEC 05/28/2007 Colonoscopy-repeat in -2016 - EGD W/O OR W/BRUSH/WASH 11/28/2017 reflux esophagitis, repeat EGD in 2-3 years - PAST SURGICAL HISTORY OF breast cyst - PAST SURGICAL HISTORY OF partial resection right foot- 3rd toe - REMOVAL GALLBLADDER ' or '02 ?? - REMOVAL OF TONSILS,<12 Y/O - THYROIDECTOMY 05/03/01 - TOTAL ABDOM HYSTERECTOMY Family History FAMILY HISTORY Problem Relation Age of Onset - Colon Cancer Brother Colon CA not primary - Cancer Father LUNG- at age 57 Social History Social History Marital status: Spouse name: Years of education: Number of children: Social History Main Topics Smoking status: Never Smoker Smokeless tobacco: Never Used Alcohol use: No Drug use: No Sexual activity: Not Currently EXAM: BP 132/80 (BP Site: Right Arm, BP Position: Sitting, BP Cuff Size: Regular Adult) Temp 36.4 ?C (97.5 ?F) (Tympanic) Resp 16 Wt 56.7 kg (125 lb) BMI 21.46 kg/m? General Appearance: Well appearing, alert, in no acute distress, well-hydrated, well nourished.. Neck: Supple, no adenopathy; thyroid symmetric, normal size, Lungs: Lungs clear to auscultation. No wheezing, rhonchi, rales. No cough noted throughout visit Heart: RRR without murmur, gallop, or rubs. No ectopy. Extremities: No deformities, edema, skin discoloration, clubbing or cyanosis. Good capillary refill. + pain with abduction, able to lift arm to shoulder level. ASSESSMENT/PLAN: 1. Arm pain, musculoskeletal, left - ICD9: 729.5, ICD10: M79.602 (primary diagnosis) - Will do short prednisone burst, may use Tylenol and hold Ibuprofen while taking Prednisone. Then if needed my resume Ibuprofen. - Call if sx persist, may consider PHYSICAL THERAPY. - PREDNISONE 20 MG TABLET 2. Essential hypertension - ICD9: 401.9, ICD10: I10 - fair control - Continue current medication(s) - Recommended regular aerobic exercise. - Recommend home blood pressure monitoring, to bring results in on next visit - Recheck in 1 month, sooner should new symptoms or problems arise. Nurse visit - Goal of BP <130/80 3. Cough - ICD9: 786.2, ICD10: R05 - Resolving Celeste Gipson, MSN HOOKER MACHINE TENDER.CARE ASSISTANT Referring Provider: CELESTE GIPSON (SMALL OFFSET PRINTER) [[id number]] Allergies As of Date: 05/01/2018 Noted Allergy Reaction CIPRO (CIPROFLOXACIN) 09/02/2005 10 - Anaphylaxis ESTRIOL MICRONIZED 01/29/2014 14 - Other: See Comments Comments: Chest pain, severe nausea CODEINE 02/20/2006 Comments: vomitting DARVOCET A500 (PROPOXYPHENE N-CURT*12/06/2005 11 - Vomiting Comments: also paralysis DIOVAN (VALSARTAN) 02/04/2009 7 - Swelling LISINOPRIL 05/01/2018 3 - Cough Comments: ACEI cough NORGESIC (ASRYTYGYXOWQ-AUC-TLEILT*12/06/2005 ULTRAM (TRAMADOL HCL) 03/29/2006 10 - Anaphylaxis ZOLOFT (SERTRALINE HCL) 01/22/2007 1 - Mental Status Change Date Reviewed: 05/01/2018 Reviewed by: Sravani Boogie LPN - Fully Assessed Reason for Visit: Recheck [92] Cmt: left ankle edema, bp and cough Primary Visit Diagnosis:Arm pain, musculoskeletal, left [M79.602] Other Visit Diagnoses:Essential hypertension [I10] Cough [R05] Order(s):predniSONE (DELTASONE) 20 mg tabletTake 2 tablets by mouth once daily for 5 days.Disp: 10 tabletRfl: 0 Prescriptions as of 05/01/2018 Sig: IBUPROFEN 600 MG TABLET Take 1 tablet by mouth every * LEVOTHYROXINE 100 MCG TABLET Take 1 tablet by mouth once d* TRIAMCINOLONE ACETONIDE 0.1 %* Apply 1 application to affect* HYDROCHLOROTHIAZIDE 12.5 MG C* Take 1 capsule by mouth once * CHOLECALCIFEROL (VITAMIN D3) * Take 1 tablet by mouth once d* VIACTIV 500 MG-200 UNIT-40 MC* Take one(1) tablet two(2) laura* PREDNISONE 20 MG TABLET Take 2 tablets by mouth once * Problem List As Of Date 05/01/2018 Noted Resolved Rheumatoid arthritis (HCC) [M06.9] IRRITABLE COLON [K58.9] INVALID FOR* PRIMARY HYPERPARATHYROIDISM [E21.0] INVALID FOR*06/23/2008 Calcaneal spur [M77.30] INVALID FOR*05/23/2016 History of thyroid cancer [Z85.850] INVALID FOR* More... Hearing loss in left ear [H91.92] INVALID FOR* Tinnitus [H93.19] INVALID FOR* Hypertension [I10] INVALID FOR* Symptomatic menopausal or female climacteric st*INVALID FOR* Postsurgical hypothyroidism [E89.0] INVALID FOR* Vitamin D deficiency [E55.9] INVALID FOR* Bilateral impacted cerumen [H61.23] INVALID FOR*05/23/2016 Prescriptions ordered this encounter Disp Refills Start End PREDNISONE 20 MG TABLET 10 t* 0 05/01/2018 05/06/2018 Route: ORAL Sig: Take 2 tablets by mouth once daily for 5 days. Medications Discontinued During This Encounter lansoprazole (PREVACID) 30 mg capsule 30 c* 2 12/05/2017 05/01/2018 Route: ORAL Sig: Take 1 capsule by mouth once daily. Disc: Course of therapy completed Disposition: Return in about 1 month (around 06/01/2018). Follow-up and Disposition History Recorded Encounter Status:Closed by CELESTE GIPSON CNP on 05/01/18 BASIC METABOLIC PANL Collected: 04/10/2018 Status: F Source: [place] 5:[address] [facility] REPOSITORY TYPE CODE TESTS RESULT OUT OF REFERENCE UNITS RANGE LAB GLU 74-99 mg/dL Glucose 97 Result Comment: The [place] [employer] (ADA) provides guidance for cutoff values for fasting glucose and random glucose. The ADA defines fasting as no caloric intake for at least 8 hours. Fas ting plasma glucose results between 100 to 125 mg/dL indicate increased risk for diabetes (prediabetes). Fasting plasma glucose results greater than or equal to 126 mg/dL meet the criteria for diagnosis of diabetes. In the absence of unequivocal hyperglycemia, results should be confirmed by repeat testing. In a patient with classic symptoms of hyperglycemia or hyperglycemic crisis, random plasma glucose results greater than or equal to 200 mg/dL meet the criteria for diagnosis of diabetes. Reference: Standards of Medical Care in Diabetes 2016, [place] [employer]. Diabetes Care. 2016.39(Suppl 1). LAB BUN 7-21 mg/dL BUN 13 LAB CRET 0.58-0.96 mg/dL Creatinine Low 0.50 LAB NA 136-144 mmol/L Sodium 140 LAB K 3.7-5.1 mmol/L Potassium 4.0 LAB CL 97-105 mmol/L Chloride 101 LAB CO2 22-30 mmol/L CO2 26 LAB AGAP 9-18 mmol/L Anion Gap 13 LAB CA 8.5-10.2 mg/dL Calcium, Total 9.3 LAB GFRAA eGFR- Amer. >60 LAB GFRNAA . eGFR-All Other Races >60 Result Comment: eGFR (Estimated GFR) Units of measure: mL/min/1.73 meters squared eGFR is derived from the reexpressed MDRD Study equation using the following parameters: serum creatinine, age, gender and race. The creatinine assay has been calibrated to be traceable to IDMS. An eGFR <60 mL/min/1.73m2 for >3 months is consistent with chronic kidney disease. Refer to KDOQI guidelines for clinical interpretation. In patients with unstable renal function, e.g. those with acute kidney injury, the eGFR may not accurately reflect actual GFR. Performed By: #### BMP, TSH #### [facility] [address] [place], [place] [address] TSH Collected: 04/10/2018 Status: F Source: [place] 5:06 PM [facility] REPOSITORY TYPE CODE TESTS RESULT OUT OF RANGE REFERENCE UNITS LAB TSH 0.400-5.500 uU/mL TSH 4.010 Performed By: #### BMP, TSH #### [facility] [address] [place], [place] [address] T4/FTI Collected: 04/10/2018 Status: F Source: [place] 5:06 PM [facility] REPOSITORY TYPE CODE TESTS RESULT OUT OF REFERENCE UNITS RANGE LAB T4 5.5-10.2 ug/dL T4 9.8 LAB T4U 0.91-1.19 T4 Uptake 1.10 LAB FTI 5.3-10.8 ug/dL FTI 8.9 Performed By: #### T4FTI #### [facility] [address] [place], [place] [address] PROGRESS Observed: 04/10/2018 Status: COMPLETED Source: [place] 4:46 PM [facility] REPOSITORY HNO ID: [id number] Author: Nayeli Reyes (Terrie) Terrie Dawson Service: (none) Author Type: Communications Professional Type: Progress Notes Filed: 04/10/2018 4:46 PM Note Text: Radiology Service Progress Note PATIENT NAME: Alba Alfaro DATE OF SERVICE: April 10, 2018 TIME: 4:46 PM PATIENT IDENTITY VERIFICATION COMPLETED USING TWO (2) METHODS: Patient confirmed name verbally and Date of . PATIENT GENDER DATA: Female. status: : No status: NO. PATIENT RELEVANT IMPLANT DATA REVIEWED: Not Applicable RADIOLOGY DEPARTMENT: General X-ray: Exam(s) Completed: Chest X-Ray PERIPHERAL IV DATA: Not applicable SIGNED BY: Terrie Arango April 10, 2018 4:46 PM XR CHEST 2V FRONTAL/LAT Observed: 04/10/2018 Status: F Source: [place] 4:46 PM [facility] REPOSITORY * * *Final Report* * * DATE OF EXAM: Apr 10 2018 4:46PM WOX [id number] - XR CHEST 2V FRONTAL/LAT / PROCEDURE REASON: Cough * * * * Physician Interpretation * * * * EXAMINATION: CHEST RADIOGRAPH (2 VIEW FRONTAL and LATERAL) Clinical History: Cough MQ: XC2_5 Comparison: None. RESULT: Lines, tubes, and devices: None. Lungs and pleura: No consolidation. No lung mass. No pleural effusion. Cardiomediastinal silhouette: Normal cardiomediastinal silhouette. Other: There are degenerative changes in the spine. IMPRESSION: No acute radiographic abnormality. Flight Information Expediter: ROLAN Transcribe Date/Time: Apr 10 2018 4:48P Dictated by : LAINEY CEVALLOS MD This examination was interpreted and the report reviewed and electronically signed by: LAINEY CEVALLOS MD on Apr 10 2018 4:49PM EST [id number] PROGRESS Observed: 04/10/2018 Status: COMPLETED Source: [place] 3:47 PM [facility] REPOSITORY HNO ID: [id number] Author: Celeste Javed (Timur) Brandan Service: (none) Author Type: Nurse Practitioner Type: Progress Notes Filed: 04/10/2018 4:55 PM Note Text: Chief Complaint Patient presents with: ED Follow-up: was seen [facility] for left ankle swelling HPI Alba Alfaro is a 67 year old female who presents here today for Above Complaints. Seen [facility] ED 03/22/18 same day when noticed swelling left ankle. Insidious onset, no history of remote trauma. ED report and Venous Doppler report reviewed. Notes ankle sprain years ago. Venous doppler was normal negative for DVT. She notes swelling does go down at night and swelling worsens as day progresses . Denies any pain, notes feeling of tightness with the swelling. Also notes intermittent sharp twinges at night to ankle. Denies SOB, or chest pain. + cough. Cough: is on an ACEI, has noticed a dry, hacky cough x 3 weeks. Persistent. Denies SOB. No chest pain, or wheezing. Cannot complete full sentence without coughing. Has tried OTC cough syrups, throat lozenges, Tessalon of no benefit. Also small abrasion left forearm earlier today. Using small tree saw on bushes [place], sustained small abrasion across her arm. Unsure of last tetanus. Past medical history, appointments, medications, allergies reviewed. Previous Medical History PAST MEDICAL HISTORY Diagnosis Date - Disorder of bone and cartilage, unspecified - Essential hypertension, benign 09/15/2011 - Hearing loss in left ear 09/15/2011 - Hemorrhage of rectum and anus - Malignant neoplasm of thyroid gland (HCC) - Mental disorder - Myalgia and myositis, unspecified - Rheumatoid arthritis(714.0) - Vitamin D deficiency 11/27/2014 Previous Surgical History PAST SURGICAL HISTORY Procedure Laterality Date - COLONOSCOP W/ OR W/O BRSH SPEC 05/28/2007 Colonoscopy-repeat in - EGD W/O OR W/BRUSH/WASH 11/28/2017 reflux esophagitis, repeat EGD in 2-3 years - PAST SURGICAL HISTORY OF breast cyst - PAST SURGICAL HISTORY OF partial resection right foot- 3rd toe - REMOVAL GALLBLADDER ' or '02 ?? - REMOVAL OF TONSILS,<12 Y/O - THYROIDECTOMY 05/03/01 - TOTAL ABDOM HYSTERECTOMY Family History FAMILY HISTORY Problem Relation Age of Onset - Colon Cancer Brother Colon CA not primary - Cancer Father LUNG- at age 57 Patient Allergies ALLERGIES Allergen Reactions - Cipro [Ciprofloxaci* Anaphylaxis - Estriol Micronized Other: See Comments Chest pain, severe nausea - Codeine vomitting - Darvocet A500 [Prop* Vomiting also paralysis - Diovan [Valsartan] Swelling - Norgesic [Orphenadr* - Ultram [Tramadol Hc* Anaphylaxis - Zoloft [Sertraline * Mental Status Change Current Medications Current Outpatient Prescriptions on File Prior to Visit: lisinopril-hydrochlorothiazide (PRINZIDE,ZESTORETIC) 10-12.5 mg per tablet Take 1/2 tablet by mouth daily levothyroxine (LEVOXYL) 88 mcg tablet Take 1 tablet by mouth once daily. Take on empty stomach. For Thyroid Cholecalciferol, Vitamin D3, 2,000 unit cap Take 1 tablet by mouth once daily. ca carbonate/vitamin d3/vit k(VIACTIV 500 MG-200 UNIT-40 MCG TAB) Take one(1) tablet two(2) times daily. lansoprazole (PREVACID) 30 mg capsule Take 1 capsule by mouth once daily. No current facility-administered medications on file prior to visit. Social History Social History Marital status: Spouse name: Years of education: Number of children: Social History Main Topics Smoking status: Never Smoker Smokeless tobacco: Never Used Alcohol use: No Drug use: No Sexual activity: Not Currently Review of Symptoms REVIEW OF SYSTEMS PAIN ASSESSMENT: Negative for pain, history of chronic pain, or current treatment for a chronic pain condition. GENERAL: No weight loss, malaise or fevers HEENT: Negative for frequent or significant headaches, No changes in hearing or vision, no nose bleeds or other nasal problems NECK: Negative for lumps, goiter, pain and significant neck swelling RESPIRATORY: Cough; dry CARDIOVASCULAR: Negative for chest pain, leg swelling, hypertension, CHF or palpitations EXAM: BP 142/90 (BP Site: Right Arm, BP Position: Sitting, BP Cuff Size: Regular Adult) Pulse 110 Temp 37.7 ?C (99.9 ?F) (Tympanic) Resp 16 Wt 57.2 kg (126 lb) SpO2 98% BMI 21.63 kg/m? General Appearance: Well appearing, alert, in no acute distress, well-hydrated, well nourished.. Neck: Supple, no adenopathy; thyroid symmetric, normal size, no bruits. Lungs: Lungs clear to auscultation. No wheezing, rhonchi, rales. Positive: frequent, dry cough noted throughout exam. Heart: RRR without murmur, gallop, or rubs. No ectopy. Extremities: No deformities, edema, skin discoloration, clubbing or cyanosis. Good capillary refill. , Positive: soft tissue swelling left lateral posterior to malleolus. Full RANGE OF MOTION, no focal tenderness or diffuse swelling or edema. Health Maintenance List DTAP,TDAP,TD(1 - Tdap) due on 1970 HEPATITIS C SCREENING due on 1995 INFLUENZA(1) due on 05/05/2018 FECAL OCCULT BLOOD due on 05/29/2018 MAMMOGRAM due on 06/19/2018 ANNUAL PCP TEAM CHRONIC DISEASE VISIT due on 11/14/2018 BLOOD PRESSURE CONTROLLED due on 12/05/2018 DIABETES SCREEN due on 05/29/2020 LIPID SCREEN due on 05/10/2021 BONE DENSITY Completed ADULT PREVNAR-13 Completed PNEUMOVAX AGE 65 AND OVER WITH 5YR LOOKBACK Completed ASSESSMENT/PLAN: 1. Swelling of ankle, left - ICD9: 719.07, ICD10: M25.472 (primary diagnosis) - ? Etiology, ? Arthritis, venous insufficiency vs ankle strain. will check thyroid levels and BMP. - BASIC METABOLIC PNL - TSH BLD - T4/FTI/T4U 2. Irritant contact dermatitis due to plants, except food - ICD9: 692.6, ICD10: L24.7 - requested refill to have on hand - TRIAMCINOLONE ACETONIDE 0.1 % TOPICAL CREAM 3. Need for vaccination - ICD9: V05.9, ICD10: Z23 - TDAP VACCINE AGE 7+ IM 4. Abrasion of left upper extremity, initial encounter - ICD9: 913.0, ICD10: S40.812A - Cleansed properly, watch for signs of infection. Tdap given today 5. Cough - ICD9: 786.2, ICD10: R05 - Likely ACEI cough. Will check CXR since h/o thyroid CA - XR CHEST 2V FRONTAL/LAT 6. Essential hypertension - ICD9: 401.9, ICD10: I10 - suboptimal control - Discontinue lisinopril (Zestril/Prinivil) and will add HCTZ 12.5 mg (previously taking 6.25.) - Recommend home blood pressure monitoring, to bring results in on next visit - Recheck in 3 weeks, sooner should new symptoms or problems arise. - Goal of BP <130/80 - HYDROCHLOROTHIAZIDE 12.5 MG CAPSULE - BASIC METABOLIC PNL 7. Postsurgical hypothyroidism - ICD9: 244.0, ICD10: E89.0 - Instructed patient on importance of taking on an empty stomach either first thing in the morning or at bedtime. - check TSH and T4/FTI today - TSH BLD - T4/FTI/T4U Celeste Gipson, MSN HOOKER MACHINE TENDER.CARE ASSISTANT CNOV Observed: 04/10/2018 Status: COMPLETED Source: [place] 3:40 PM [facility] REPOSITORY Office Visit (FAMPWS) ALBA ALFARO ([id number]) 1950 F Date Time Provider Department 04/10/18 3:40 PM CELESTE GIPSON (SMALL OFFSET PRINTER) FAMPWS During your visit today, we recorded the following information about you: Temperature Pulse Respiration Blood pressure 99.9 degrees 110/minute 16/minute 142/90 Weight 57.2 kg Celeste Gipson MSN HOOKER MACHINE TENDER.CARE ASSISTANT 04/10/2018 4:55 PM Signed Chief Complaint Patient presents with: ED Follow-up: was seen [facility] for left ankle swelling HPI Alba Alfaro is a 67 year old female who presents here today for Above Complaints. Seen [facility] ED 03/22/18 same day when noticed swelling left ankle. Insidious onset, no history of remote trauma. ED report and Venous Doppler report reviewed. Notes ankle sprain years ago. Venous doppler was normal negative for DVT. She notes swelling does go down at night and swelling worsens as day progresses . Denies any pain, notes feeling of tightness with the swelling. Also notes intermittent sharp twinges at night to ankle. Denies SOB, or chest pain. + cough. Cough: is on an ACEI, has noticed a dry, hacky cough x 3 weeks. Persistent. Denies SOB. No chest pain, or wheezing. Cannot complete full sentence without coughing. Has tried OTC cough syrups, throat lozenges, Tessalon of no benefit. Also small abrasion left forearm earlier today. [facility], sustained small abrasion across her arm. Unsure of last tetanus. Past medical history, appointments, medications, allergies reviewed. Previous Medical History PAST MEDICAL HISTORY Diagnosis Date - Disorder of bone and cartilage, unspecified - Essential hypertension, benign 09/15/2011 - Hearing loss in left ear 09/15/2011 - Hemorrhage of rectum and anus - Malignant neoplasm of thyroid gland (HCC) - Mental disorder - Myalgia and myositis, unspecified - Rheumatoid arthritis(714.0) - Vitamin D deficiency 11/27/2014 Previous Surgical History PAST SURGICAL HISTORY Procedure Laterality Date - COLONOSCOP W/ OR W/O BRSH SPEC 05/28/2007 Colonoscopy-repeat in -2016 - EGD W/O OR W/BRUSH/WASH 11/28/2017 reflux esophagitis, repeat EGD in 2-3 years - PAST SURGICAL HISTORY OF breast cyst - PAST SURGICAL HISTORY OF partial resection right foot- 3rd toe - REMOVAL GALLBLADDER '01 or '02 ?? - REMOVAL OF TONSILS,<12 Y/O - THYROIDECTOMY 05/03/01 - TOTAL ABDOM HYSTERECTOMY Family History FAMILY HISTORY Problem Relation Age of Onset - Colon Cancer Brother Colon CA not primary - Cancer Father LUNG- at age 57 Patient Allergies ALLERGIES Allergen Reactions - Cipro [Ciprofloxaci* Anaphylaxis - Estriol Micronized Other: See Comments Chest pain, severe nausea - Codeine vomitting - Darvocet A500 [Prop* Vomiting also paralysis - Diovan [Valsartan] Swelling - Norgesic [Orphenadr* - Ultram [Tramadol Hc* Anaphylaxis - Zoloft [Sertraline * Mental Status Change Current Medications Current Outpatient Prescriptions on File Prior to Visit: lisinopril-hydrochlorothiazide (PRINZIDE,ZESTORETIC) 10-12.5 mg per tablet Take 1/2 tablet by mouth daily levothyroxine (LEVOXYL) 88 mcg tablet Take 1 tablet by mouth once daily. Take on empty stomach. For Thyroid Cholecalciferol, Vitamin D3, 2,000 unit cap Take 1 tablet by mouth once daily. ca carbonate/vitamin d3/vit k(VIACTIV 500 MG-200 UNIT-40 MCG TAB) Take one(1) tablet two(2) times daily. lansoprazole (PREVACID) 30 mg capsule Take 1 capsule by mouth once daily. No current facility-administered medications on file prior to visit. Social History Social History Marital status: Spouse name: Years of education: Number of children: Social History Main Topics Smoking status: Never Smoker Smokeless tobacco: Never Used Alcohol use: No Drug use: No Sexual activity: Not Currently Review of Symptoms REVIEW OF SYSTEMS PAIN ASSESSMENT: Negative for pain, history of chronic pain, or current treatment for a chronic pain condition. GENERAL: No weight loss, malaise or fevers HEENT: Negative for frequent or significant headaches, No changes in hearing or vision, no nose bleeds or other nasal problems NECK: Negative for lumps, goiter, pain and significant neck swelling RESPIRATORY: Cough; dry CARDIOVASCULAR: Negative for chest pain, leg swelling, hypertension, CHF or palpitations EXAM: BP 142/90 (BP Site: Right Arm, BP Position: Sitting, BP Cuff Size: Regular Adult) Pulse 110 Temp 37.7 ?C (99.9 ?F) (Tympanic) Resp 16 Wt 57.2 kg (126 lb) SpO2 98% BMI 21.63 kg/m? General Appearance: Well appearing, alert, in no acute distress, well-hydrated, well nourished.. Neck: Supple, no adenopathy; thyroid symmetric, normal size, no bruits. Lungs: Lungs clear to auscultation. No wheezing, rhonchi, rales. Positive: frequent, dry cough noted throughout exam. Heart: RRR without murmur, gallop, or rubs. No ectopy. Extremities: No deformities, edema, skin discoloration, clubbing or cyanosis. Good capillary refill. , Positive: soft tissue swelling left lateral posterior to malleolus. Full RANGE OF MOTION, no focal tenderness or diffuse swelling or edema. Health Maintenance List DTAP,TDAP,TD(1 - Tdap) due on 1970 HEPATITIS C SCREENING due on 1995 INFLUENZA(1) due on 05/05/2018 FECAL OCCULT BLOOD due on 05/29/2018 MAMMOGRAM due on 06/19/2018 ANNUAL PCP TEAM CHRONIC DISEASE VISIT due on 11/14/2018 BLOOD PRESSURE CONTROLLED due on 12/05/2018 DIABETES SCREEN due on 05/29/2020 LIPID SCREEN due on 05/10/2021 BONE DENSITY Completed ADULT PREVNAR-13 Completed PNEUMOVAX AGE 65 AND OVER WITH 5YR LOOKBACK Completed ASSESSMENT/PLAN: 1. Swelling of ankle, left - ICD9: 719.07, ICD10: M25.472 (primary diagnosis) - ? Etiology, ? Arthritis, venous insufficiency vs ankle strain. will check thyroid levels and BMP. - BASIC METABOLIC PNL - TSH BLD - T4/FTI/T4U 2. Irritant contact dermatitis due to plants, except food - ICD9: 692.6, ICD10: L24.7 - requested refill to have on hand - TRIAMCINOLONE ACETONIDE 0.1 % TOPICAL CREAM 3. Need for vaccination - ICD9: V05.9, ICD10: Z23 - TDAP VACCINE AGE 7+ IM 4. Abrasion of left upper extremity, initial encounter - ICD9: 913.0, ICD10: S40.812A - Cleansed properly, watch for signs of infection. Tdap given today 5. Cough - ICD9: 786.2, ICD10: R05 - Likely ACEI cough. Will check CXR since h/o thyroid CA - XR CHEST 2V FRONTAL/LAT 6. Essential hypertension - ICD9: 401.9, ICD10: I10 - suboptimal control - Discontinue lisinopril (Zestril/Prinivil) and will add HCTZ 12.5 mg (previously taking 6.25.) - Recommend home blood pressure monitoring, to bring results in on next visit - Recheck in 3 weeks, sooner should new symptoms or problems arise. - Goal of BP <130/80 - HYDROCHLOROTHIAZIDE 12.5 MG CAPSULE - BASIC METABOLIC PNL 7. Postsurgical hypothyroidism - ICD9: 244.0, ICD10: E89.0 - Instructed patient on importance of taking on an empty stomach either first thing in the morning or at bedtime. - check TSH and T4/FTI today - TSH BLD - T4/FTI/T4U Celeste Gipson, MSN HOOKER MACHINE TENDER.CARE ASSISTANT Referring Provider: SELF [[id number]] Allergies As of Date: 04/10/2018 Noted Allergy Reaction CIPRO (CIPROFLOXACIN) 09/02/2005 10 - Anaphylaxis ESTRIOL MICRONIZED 01/29/2014 14 - Other: See Comments Comments: Chest pain, severe nausea CODEINE 02/20/2006 Comments: vomitting DARVOCET A500 (PROPOXYPHENE N-CURT*12/06/2005 11 - Vomiting Comments: also paralysis DIOVAN (VALSARTAN) 02/04/2009 7 - Swelling NORGESIC ([id number]*12/06/2005 ULTRAM (TRAMADOL HCL) 03/29/2006 10 - Anaphylaxis ZOLOFT (SERTRALINE HCL) 01/22/2007 1 - Mental Status Change Date Reviewed: 04/10/2018 Reviewed by: Sravani Boogie LPN - Fully Assessed Reason for Visit: ED Follow-up [821] Cmt: was seen [facility] for left ankle swelling Reason For Visit History Recorded Primary Visit Diagnosis:Swelling of ankle, left [M25.472] Other Visit Diagnoses:Irritant contact dermatitis due to plants, except food [L24.7] Need for vaccination [Z23] Abrasion of left upper extremity, initial encounter [S40.812A] Cough [R05] Essential hypertension [I10] Postsurgical hypothyroidism [E89.0] Order(s):triamcinolone acetonide (KENALOG) 0.1 % creamApply 1 application to affected area three times daily. Apply sparingly to area for rash/itching.Disp: 30 gRfl: 0 TDAP VACCINE AGE 7+ IM [[id number]] Order #: [id number] Hydrochlorothiazide 12.5 mg capsuleTake 1 capsule by mouth once daily.Disp: 30 capsuleRfl: 12 XR CHEST 2V FRONTAL/LAT [[id number]] Order #: [id number] FUTURE BASIC METABOLIC PNL [SQBMP] Order #: [id number] FUTURE TSH BLD [SQTSH] Order #: [id number] FUTURE T4/FTI/T4U [[id number]] Order #: [id number] Prescriptions as of 04/10/2018 Sig: LEVOTHYROXINE 88 MCG TABLET Take 1 tablet by mouth once d* CHOLECALCIFEROL (VITAMIN D3) * Take 1 tablet by mouth once d* VIACTIV 500 MG-200 UNIT-40 MC* Take one(1) tablet two(2) laura* TRIAMCINOLONE ACETONIDE 0.1 %* Apply 1 application to affect* HYDROCHLOROTHIAZIDE 12.5 MG C* Take 1 capsule by mouth once * LANSOPRAZOLE 30 MG CAPSULE,DE* Take 1 capsule by mouth once * Problem List As Of Date 04/10/2018 Noted Resolved Rheumatoid arthritis (HCC) [M06.9] IRRITABLE COLON [K58.9] INVALID FOR* PRIMARY HYPERPARATHYROIDISM [E21.0] INVALID FOR*06/23/2008 Calcaneal spur [M77.30] INVALID FOR*05/23/2016 History of thyroid cancer [Z85.850] INVALID FOR* More... Hearing loss in left ear [H91.92] INVALID FOR* Tinnitus [H93.19] INVALID FOR* Hypertension [I10] INVALID FOR* Symptomatic menopausal or female climacteric st*INVALID FOR* Postsurgical hypothyroidism [E89.0] INVALID FOR* Vitamin D deficiency [E55.9] INVALID FOR* Bilateral impacted cerumen [H61.23] INVALID FOR*05/23/2016 Prescriptions ordered this encounter Disp Refills Start End TRIAMCINOLONE ACETONIDE 0.1 % TOPICA* 30 g 0 04/10/2018 Route: TOPICAL Sig: Apply 1 application to affected area three times daily. Apply sparingly to area for rash/itching. HYDROCHLOROTHIAZIDE 12.5 MG CAPSULE 30 c* 12 04/10/2018 Route: ORAL Sig: Take 1 capsule by mouth once daily. Medications Discontinued During This Encounter lisinopril-hydrochlorothiazide (PRIN* 45 t* 3 03/22/2018 04/10/2018 Sig: Take 1/2 tablet by mouth daily Disc: Clinical Decision Disposition: Return in about 3 weeks (around 05/01/2018). Follow-up and Disposition History Recorded Encounter Status:Closed by CELESTE GIPSON CNP on 04/10/18 EMERGENCY DEPARTMENT Observed: 03/23/2018 Status: F Source: [place] SUMMARY 12:06 AM [facility] Medical Records Department [address] [place] [address] Emergency Department Summary 03/22/182106 MR#: [id number] Acct: [id number] Name: ALBA ALFARO Rep #: [id number] : 1950 67 From: Fidel Alfaro MD PCP: Billy Pulido III, MD Status: DEP ER - ER Visit Summary Date of Service: 03/22/18 Chief Complaint: Atraumatic left lower leg lateral swelling about the ankle. History of Present Illness: The patient is a 67 F past medical history of hypertension and hypothyroidism from a prior thyroidectomy from thyroid cancer. Patient states that yesterday she noticed some minimal swelling in her left lateral ankle. Denies any fall trauma or fever. No pain with walking. Today noticed some discomfort in the posterior aspect of her left lower calf. Denies any redness. Absolutely no trauma. No prior history. No history of DVT or PE. No shortness of breath. No chest pain. She denies any recent travel, surgery, mobilization. There is no family history of clotting disorders that she is aware of. Physical Examination: Well-appearing older female. Vital signs are stable afebrile. She does not look septic or toxic. Pulse ox 90% on room air no signs of hypoxia. HEENT exam unremarkable. Neck nontender. Lungs clear to auscultation bilaterally. Heart regular rate and rhythm no murmur. Chest nontender. Abdomen soft nontender. She is moving all 4 extremities. They are neurovascularly intact. She has a strong DP pulse in her left foot. There is minimal swelling to the left lateral ankle and lower leg region. There is no calf tenderness. No cords. No significant edema. She has full range of motion to her entire left lower leg. Dorsi plantar flexion is intact. Normal touch sensation. Back exam is normal. There is no SI tenderness. Skin is normal without any rash or cellulitis. Neurologic exam normal. Test Results: Noninvasive study left lower extremity shows no DVT per the audiovisual lead technician. Emergency Department Course and Treatment: Repeat exam patient is doing well. Again no signs of infection. No history of trauma and nontender. Treatment Plan: Follow-up with primary care physician. Disposition: Discharge Impression: Acute left lower leg atraumatic swelling of uncertain etiology. This note was generated with Merusation software. It may contain incorrect words, spelling, and punctuation that were not noted in review of the chart prior to signing ED Disposition - Plan for ED Patient: Chief Complaint: Lower Extremity Injury Referrals: Billy Pulido III, MD [Primary Care Provider] - What to do if you have Problems For any increased pain, shortness of breath, bleeding, nausea or vomiting, chest pain, or any unexpected problems, contact your Primary Care Provider. Call [facility] ([phone]) or report to the closest Emergency Room. Call 911 if necessary. 03/23/186 <Electronically signed by Fidel Alfaro MD> Date Fidel Alfaro MD Cosigner Signature (If Indicated): Date CC: Billy Pulido III, MD DISCHARGE INSTRUCTION Observed: 03/23/2018 Status: F Source: [place] 12:06 AM [facility] Medical Records Department [address] [place] [address] Discharge Instruction 03/22/182140 MR#: [id number] Acct: [id number] Name: ALBA ALFARO Rep #: [id number] : 1950 67 From: Fidel Alfaro MD PCP: Billy Pulido III, MD Status: DEP ER ED Disposition - Plan for ED Patient: Disposition: Home or Assisted Living Chief Complaint: Lower Extremity Injury Referrals: Billy Pulido III, MD [Primary Care Provider] - 1 Week if not improving Additional Instructions: Ultrasound of your left leg tonight showed no blood clot. Elevate your leg to decrease swelling. Call follow-up with Dr. Pulido if not improving. Return to the ER if redness or fever. What to do if you have Problems For any increased pain, shortness of breath, bleeding, nausea or vomiting, chest pain, or any unexpected problems, contact your Primary Care Provider. Call [facility] ([phone]) or report to the closest Emergency Room. Call 911 if necessary. 03/23/18 0006 <Electronically signed by Fidel Alfaro MD> Date Fidel Alfaro MD Cosigner Signature (If Indicated): Date CC: Billy Pulido III, MD VENOUS DUPLEX Observed: 03/22/2018 Status: F Source: [place] IMAG/LIMITED/UNI 9:08 PM [facility] [place] [facility] Imaging Services [address] [place], [place] [address] [address] Venous Duplex Imag/Limited/Uni MR#: [id number] Acct: [id number] Name: ALBA ALFARO Rep #: [id number] : 1950 67 From: Osmani Clinton MD PCP: Billy Pulido III, MD Status: DEP ER Study: Venous Duplex Imag/Limited/Uni Date of Exam: 03/22/18 Exam# [id number] Ordering Dr: Fidel Alfaro MD STUDY: VENOUS DOPPLER ULTRASOUND - LEFT LOWER EXTREMITY REASON FOR EXAM: Female, 67 years old. Pain TECHNIQUE: Ultrasound evaluation of the deep vein system to include stewart-scale imaging and compression was performed. Stewart-scale imaging and Doppler sonographic evaluation, including duplex spectral analysis and qualitative color flow sonography, was performed. COMPARISON: None. FINDINGS: Common Femoral Vein: Normal compression, spontaneity and augmentation. Normal color Doppler. Common Femoral Vein/Greater Saphenous Junction: Normal compression, spontaneity and augmentation. Normal color Doppler. Deep Femoral Vein: Normal compression, spontaneity and augmentation. Normal color Doppler. Femoral Proximal: Normal compression, spontaneity and augmentation. Normal color Doppler. Femoral Middle: Normal compression, spontaneity and augmentation. Normal color Doppler. Femoral Distal: Normal compression, spontaneity and augmentation. Normal color Doppler. Popliteal Vein: Normal compression, spontaneity and augmentation. Normal color Doppler. Posterior Tibial Vein: Normal compression, spontaneity and augmentation. Normal color Doppler. Peroneal Vein: Normal compression, spontaneity and augmentation. Normal color Doppler. US/Venous Duplex Imag/Limited/Uni IMPRESSION: Normal venous Doppler ultrasound of the left lower extremity. Electronically Signed: Osmani Clinton, at 21:56 EDT Tel , Service support , CC: Billy Pulido III, MD; Fidel Alfaro MD Flight Information Expediter: Signed PROGRESS Observed: 12/05/2017 Status: COMPLETED Source: [place] 10:42 AM [facility] REPOSITORY HNO ID: [id number] Author: Renzo Ramos (Pa) Service: (none) Author Type: Physician Pipe Machine Operator Type: Progress Notes Filed: 12/07/2017 3:33 PM Note Text: FOLLOW UP VISIT - ENDOSCOPY NAME: Alba Krueger [facility] NO.: [id number] DATE OF SERVICE: 12/05/2017 : 1950 REFERRING PHYSICIAN: Billy Pulido III MD Alba is a patient I am following with Dr. oSares for dysphagia. Dr. Soares performed upper endoscopy on 11/28/17. The patient was found to have a small hiatal hernia and non-severe reflux esophagitis. Pathology demonstrated: FINAL DIAGNOSIS 1. Jejunum, biopsy (A) - - Small intestinal mucosa with no diagnostic alteration. - No morphologic evidence of celiac disease. 2. Antrum, biopsy (B) - Antral mucosa with chronic inactive gastritis. - Negative for Helicobacter pylori (immunostain). 3. Esophagogastric junction, biopsy (C) - Squamous mucosa with reactive epithelial changes. - Adjacent inflamed gastric mucosa. - Negative for intestinal metaplasia. 4. Mid esophagus, biopsy (D) - Squamous mucosa with no diagnostic alteration. - Negative for intraepithelial eosinophils. SR/eulalia 11/29/2017 COMMENT Given the background of chronic gastritis a Helicobacter pylori immunostain was performed on block A1 and is negative for Helicobacter pylori organisms. The patient is currently on omeprazole 20 mg daily and notes she was instructed to increase her dosage to 40 mg daily following the endoscopy. She notes however that even on the lower dosage of omeprazole she is having adverse effects of cramping and diarrhea. She states that she is very sensitive to medications. She is requesting an alternative to the omeprazole as the side effects are worse than her initial presenting complaints. VITALS: Blood pressure 122/60, pulse 84, resp. rate 22, weight 55.8 kg (123 lb). On examination, the abdomen is benign. Assessment IMPRESSION: dysphagia, EGD findings of reflux esophagitis PLAN: D/c omeprazole and trial lansoprazole. If same problems encountered with lansoprazole will possibly try carafate Dietary and lifestyle modifications as discussed at appointment-avoid caffeine and foods high in citric acid, avoid eating after 7 pm etc. Printed information provided Call if symptoms worsen or persist despite above measures Recommend follow-up EGD in 2-3 years, recall letter generated Patient verbalized understanding of all above and agreed with the plan Diagnoses: (K21.0) Gastro-esophageal reflux disease with esophagitis (primary encounter diagnosis) I spent 20 minutes in the visit, with more than 50% of the total pqer-os-hoyw time of the visit in counseling / coordination of care. SAROJ Reynolds Observed: 12/05/2017 Status: COMPLETED Source: [place] 8:30 AM [facility] REPOSITORY Office Visit (GENSWS) ALBA ALFARO ([id number]) 1950 F Date Time Provider Department 12/05/17 8:30 AM RENZO RAMOS ([place]) During your visit today, we recorded the following information about you: Pulse Respiration Blood pressure Weight 84/minute 22/minute 122/60 55.8 kg Renzo Ramos PA-C 12/05/2017 8:34 AM Signed The following instructions are important for you related to your office visit today with the [facility]. INSTRUCTIONS FOR PEPTIC ULCER DISEASE - ESOPHAGITIS I discussed with you the findings of your upper endoscopy. Your upper endoscopy demonstrated esophagitis Esophagitis may be a form of peptic irritation, with acid moving from the stomach to the esophagus (gastroesophageal reflux) Factors that increase acid production include smoking and stress. If you smoke, stopping smoking will often cure these issues without needing other medications. Over the counter medications including antiacids and acid reducing medications including H2 blockers (Zantac and the like) and proton pump inhibitors (prilosec, prevacid and the like) neutralize or prevent acid production. Prescription strength proton pump inhibitors (PPIs) may be necessary if your symptoms persist. Carafate may be added to PPI treatment in refractory cases. Avoiding smoking, alcohol and antiinflammatory medications are important in the successful treatment of reflux esophagitis and peptic diseases. Other factors that contribute to GERD and esophagitis are being overweight, eating large meals before laying down and certain foods. Weight loss will help improve many GERD complaints. Remaining upright after eating large meals and having a small supper will also help symptoms. Avoiding food that contribute to reflux - chocolate, caffeine, cheddar cheese may also help. Follow up upper endoscopy may be recommended to assure healing of the esophagus. New or worsening symptoms such are epigastric pain, burning, difficulty swallowing or food sticking should be relayed to your physician. Feeling full early after eating, or black, tarry, foul smelling stools are also worrisome. If you have any difficulties or concerns, you should contact our office immediately. If you note any additional difficulties, questions, or concerns, you should contact our office immediately @ [phone] and ask to be transferred to the General Surgery department. Renzo Ramos PA-C 12/07/2017 3:33 PM Signed FOLLOW UP VISIT - ENDOSCOPY NAME: Alba Krueger [facility] NO.: [id number] DATE OF SERVICE: 12/05/2017 : 1950 REFERRING PHYSICIAN: Billy Pulido III MD Willis is a patient I am following with Dr. Soares for dysphagia. Dr. Soares performed upper endoscopy on 11/28/17. The patient was found to have a small hiatal hernia and non-severe reflux esophagitis. Pathology demonstrated: FINAL DIAGNOSIS 1. Jejunum, biopsy (A) - - Small intestinal mucosa with no diagnostic alteration. - No morphologic evidence of celiac disease. 2. Antrum, biopsy (B) - Antral mucosa with chronic inactive gastritis. - Negative for Helicobacter pylori (immunostain). 3. Esophagogastric junction, biopsy (C) - Squamous mucosa with reactive epithelial changes. - Adjacent inflamed gastric mucosa. - Negative for intestinal metaplasia. 4. Mid esophagus, biopsy (D) - Squamous mucosa with no diagnostic alteration. - Negative for intraepithelial eosinophils. /eulalia 11/29/2017 COMMENT Given the background of chronic gastritis a Helicobacter pylori immunostain was performed on block A1 and is negative for Helicobacter pylori organisms. The patient is currently on omeprazole 20 mg daily and notes she was instructed to increase her dosage to 40 mg daily following the endoscopy. She notes however that even on the lower dosage of omeprazole she is having adverse effects of cramping and diarrhea. She states that she is very sensitive to medications. She is requesting an alternative to the omeprazole as the side effects are worse than her initial presenting complaints. VITALS: Blood pressure 122/60, pulse 84, resp. rate 22, weight 55.8 kg (123 lb). On examination, the abdomen is benign. Assessment IMPRESSION: dysphagia, EGD findings of reflux esophagitis PLAN: D/c omeprazole and trial lansoprazole. If same problems encountered with lansoprazole will possibly try carafate Dietary and lifestyle modifications as discussed at appointment- avoid caffeine and foods high in citric acid, avoid eating after 7 pm etc. Printed information provided Call if symptoms worsen or persist despite above measures Recommend follow-up EGD in 2-3 years, recall letter generated Patient verbalized understanding of all above and agreed with the plan Diagnoses: (K21.0) Gastro-esophageal reflux disease with esophagitis (primary encounter diagnosis) I spent 20 minutes in the visit, with more than 50% of the total fiql-qo-atkw time of the visit in counseling / coordination of care. Renzo Ramos PA-C Referring Provider: BILLY PULIDO III [[id number]] Allergies As of Date: 12/05/2017 Noted Allergy Reaction CIPRO (CIPROFLOXACIN) 09/02/2005 10 - Anaphylaxis ESTRIOL MICRONIZED 01/29/2014 14 - Other: See Comments Comments: Chest pain, severe nausea CODEINE 02/20/2006 Comments: vomitting DARVOCET A500 (PROPOXYPHENE N-CURT*12/06/2005 11 - Vomiting Comments: also paralysis DIOVAN (VALSARTAN) 02/04/2009 7 - Swelling NORGESIC (NCUBFTYRSNLE-BTD-UVXYCO*12/06/2005 ULTRAM (TRAMADOL HCL) 03/29/2006 10 - Anaphylaxis ZOLOFT (SERTRALINE HCL) 01/22/2007 1 - Mental Status Change Date Reviewed: 12/05/2017 Reviewed by: Ivy Wilson LPN - Fully Assessed Reason for Visit: Post Op [174] Primary Visit Diagnosis:Gastro-esophageal reflux disease with esophagitis [K21.0] Order(s):lansoprazole (PREVACID) 30 mg capsuleTake 1 capsule by mouth once daily.Disp: 30 capsuleRfl: 2 Prescriptions as of 12/05/2017 Sig: LANSOPRAZOLE 30 MG CAPSULE,DE* Take 1 capsule by mouth once * LEVOTHYROXINE 88 MCG TABLET Take 1 tablet by mouth once d* LISINOPRIL 10 MG-HYDROCHLOROT* Take 1/2 tablet by mouth daily CHOLECALCIFEROL (VITAMIN D3) * Take 1 tablet by mouth once d* VIACTIV 500 MG-200 UNIT-40 MC* Take one(1) tablet two(2) laura* Problem List As Of Date 12/05/2017 Noted Resolved Rheumatoid arthritis (HCC) [M06.9] IRRITABLE COLON [K58.9] INVALID FOR* PRIMARY HYPERPARATHYROIDISM [E21.0] INVALID FOR*06/23/2008 Calcaneal spur [M77.30] INVALID FOR*05/23/2016 History of thyroid cancer [Z85.850] INVALID FOR* More... Hearing loss in left ear [H91.92] INVALID FOR* Tinnitus [H93.19] INVALID FOR* Hypertension [I10] INVALID FOR* Symptomatic menopausal or female climacteric st*INVALID FOR* Postsurgical hypothyroidism [E89.0] INVALID FOR* Vitamin D deficiency [E55.9] INVALID FOR* Bilateral impacted cerumen [H61.23] INVALID FOR*05/23/2016 Other instructions from your clinician: The following instructions are important for you related to your office visit today with the [facility]. INSTRUCTIONS FOR PEPTIC ULCER DISEASE - ESOPHAGITIS I discussed with you the findings of your upper endoscopy. Your upper endoscopy demonstrated esophagitis Esophagitis may be a form of peptic irritation, with acid moving from the stomach to the esophagus (gastroesophageal reflux) Factors that increase acid production include smoking and stress. If you smoke, stopping smoking will often cure these issues without needing other medications. Over the counter medications including antiacids and acid reducing medications including H2 blockers (Zantac and the like) and proton pump inhibitors (prilosec, prevacid and the like) neutralize or prevent acid production. Prescription strength proton pump inhibitors (PPIs) may be necessary if your symptoms persist. Carafate may be added to PPI treatment in refractory cases. Avoiding smoking, alcohol and antiinflammatory medications are important in the successful treatment of reflux esophagitis and peptic diseases. Other factors that contribute to GERD and esophagitis are being overweight, eating large meals before laying down and certain foods. Weight loss will help improve many GERD complaints. Remaining upright after eating large meals and having a small supper will also help symptoms. Avoiding food that contribute to reflux - chocolate, caffeine, cheddar cheese may also help. Follow up upper endoscopy may be recommended to assure healing of the esophagus. New or worsening symptoms such are epigastric pain, burning, difficulty swallowing or food sticking should be relayed to your physician. Feeling full early after eating, or black, tarry, foul smelling stools are also worrisome. If you have any difficulties or concerns, you should contact our office immediately. If you note any additional difficulties, questions, or concerns, you should contact our office immediately @ [phone] and ask to be transferred to the General Surgery department. Prescriptions ordered this encounter Disp Refills Start End LANSOPRAZOLE 30 MG CAPSULE,DELAYED R* 30 c* 2 12/05/2017 Route: ORAL Sig: Take 1 capsule by mouth once daily. Medications Discontinued During This Encounter omeprazole (PRILOSEC) 20 mg capsule 30 c* 5 11/14/2017 12/05/2017 Route: ORAL Sig: Take 1 capsule by mouth daily before breakfast. 1/2 hr before meal. Disc: Reason for discontinue is not on file. Follow-up and Disposition History Recorded Encounter Status:Closed by RENZO RAMOS PA-C on 12/07/17 NURSING PROG Observed: 11/28/2017 Status: COMPLETED Source: [place] 11:53 AM [facility] REPOSITORY HNO ID: [id number] Author: Christopher CastilloRn) ANAY Villasenor Service: Nursing Author Type: Registered Nurse Type: Nursing Progress Note Filed: 11/28/2017 11:53 AM Note Text: Patient did not experience a fall prior to discharge. Patient did not experience a burn prior to discharge. Christopher Villasenor RN NURSING PROG Observed: 11/28/2017 Status: COMPLETED Source: [place] 11:38 AM [facility] REPOSITORY HNO ID: [id number] Author: Christopher CastilloRn) ANAY Villasenor Service: Nursing Author Type: Registered Nurse Type: Nursing Progress Note Filed: 11/28/2017 11:53 AM Note Text: Dressing to go home, all safety maintained. NURSING PROG Observed: 11/28/2017 Status: COMPLETED Source: [place] 11:35 AM [facility] REPOSITORY HNO ID: [id number] Author: Christopher CastilloRn) ANAY Villasenor Service: Nursing Author Type: Registered Nurse Type: Nursing Progress Note Filed: 11/28/2017 11:52 AM Note Text: Snack tolerated well, no complaints, all safety maintained. NURSING PROG Observed: 11/28/2017 Status: COMPLETED Source: [place] 11:20 AM [facility] REPOSITORY HNO ID: [id number] Author: Christopher CastilloRn) ANAY Villasenor Service: Nursing Author Type: Registered Nurse Type: Nursing Progress Note Filed: 11/28/2017 11:52 AM Note Text: Dr Soares called, patient progress given, patient ready to go home . PT ED Observed: 11/28/2017 Status: COMPLETED Source: [place] 11:10 AM [facility] REPOSITORY HNO ID: [id number] Author: Christopher CastilloRn) ANAY Villasenor Service: Nursing Author Type: Registered Nurse Type: Patient Education Filed: 11/28/2017 11:51 AM Note Text: POST OP LEARNING RESPONSE INSTRUCTION PROVIDED TO: Patient and family member METHOD OF INSTRUCTION: Individual instruction Written instruction - handouts Verbal instruction PATIENT / FAMILY RESPONSE: Information received as demonstrated by interest and questions FOLLOW-UP PLAN: Patient instructed to call with any further issues SUPPLEMENTAL MATERIAL: None REFERRAL (RECOMMENDATION): None Electronically Signed By: Christopher Villasenor RN In Department: AMBULATORY SURGERY NURSING PROG Observed: 11/28/2017 Status: COMPLETED Source: [place] 11:09 AM [facility] REPOSITORY HNO ID: [id number] Author: Christopher CastilloRn) Jacklyn RN Service: Nursing Author Type: Registered Nurse Type: Nursing Progress Note Filed: 11/28/2017 11:10 AM Note Text: Resting quietly, blood pressure 140/66, son at her side, no complaints, all safety maintained. NURSING PROG Observed: 11/28/2017 Status: COMPLETED Source: [place] 10:55 AM [facility] REPOSITORY HNO ID: [id number] Author: Christopher CastilloRn) Jacklyn RN Service: Nursing Author Type: Registered Nurse Type: Nursing Progress Note Filed: 11/28/2017 11:04 AM Note Text: Pt into Endo recovery room in satisfactory condition. Resting on left side. Pt. sleepy but arousable. Abdomen soft, no complaints, all safety maintained. Will continue to monitor. NURSING PROG Observed: 11/28/2017 Status: COMPLETED Source: [place] 10:49 AM [facility] REPOSITORY HNO ID: [id number] Author: Daniela Simpson RN Service: (none) Author Type: Registered Nurse Type: Nursing Progress Note Filed: 11/28/2017 10:49 AM Note Text: Patient did not experience a fall within the Intraoperative area. Patient did not experience a burn within the Intraoperative area. Daniela Simpson RN NURSING PROG Observed: 11/28/2017 Status: COMPLETED Source: [place] 10:33 AM [facility] REPOSITORY HNO ID: [id number] Author: Mandy Marquez RN Service: (none) Author Type: Registered Nurse Type: Nursing Progress Note Filed: 11/28/2017 10:34 AM Note Text: [facility] PRE-OP NURSING HAND OFF NOTE SBAR Hand off given to Daniela Simpson RN. Hand off was communicated verbally and at the patient's bedside and all questions were answered. FALLS/ELIZALDE Patient did not experience a fall within the Preoperative area. Patient did not experience a burn within the Preoperative area. Mandy Marquez RN PT ED Observed: 11/28/2017 Status: COMPLETED Source: [place] 10:30 AM [facility] REPOSITORY HNO ID: [id number] Author: Mandy Castro) ANAY Marquez Service: (none) Author Type: Registered Nurse Type: Patient Education Filed: 11/28/2017 10:41 AM Note Text: Discharge Instructions were reviewed pre-operatively with the patient. All questions and concerns were addressed. Mandy Marquez RN PRE OP LEARNING ASSESSMENT PROCEDURE/SURGERY: GI PROCEDURES: EGD READINESS TO LEARN COGNITIVE ABILITY: Alert and oriented MOTIVATION TO LEARN: Interested FAMILY SUPPORT: Unable to assess - Family not present PATIENT LEARNS BEST BY: Multiple Methods FACTORS AFFECTING LEARNING: None PHYSICAL LIMITATIONS AFFECTING LEARNING: None Electronically Signed By: Mandy Marquez RN In Department: AMBULATORY SURGERY HISTORY PHYSICAL Observed: 11/28/2017 Status: COMPLETED Source: [place] 9:[address] [facility] [place] REPOSITORY [facility] ID: [id number] Author: Harman Soares Service: General Surgery Author Type: Physician Type: HANDP Filed: 11/28/2017 9:52 AM Note Text: HISTORY AND PHYSICAL ? Alba Krueger Dominic 1950 ? REFERRING PHYSICIAN: Billy Pulido III, MD ? CHIEF COMPLAINT: GERD ? HPI: The patient is a 67 year old female referred for endoscopy. Alba notes no history of colon complaints. ? The patient notes the following upper complaints: Alba notes abdominal pain. The pain occurs in the following locations: epigastric region . Alba notes heartburn. Alba notes dysphagia. This dysphagia was relatively rare in the past. The patient had an upper respiratory infection in August and she is noticed a worsening sensation of a chronic cough and more dysphagia to solids since that time. Alba denies a history of ulcers/ peptic ulcer disease. ? Alba has not undergone prior upper endoscopy. She underwent colonoscopy in 2016 which was unremarkable. While she states she tolerated the endoscopy very, very well, she is anxious about sedation and is anxious about repeat upper endoscopy but realizes that she has to have that procedure performed. She is not willing to undergo repeat colonoscopy at this time. ? The patient has a history of thyroid cancer. She underwent treatment for her thyroid cancer with radioiodine and underwent thyroidectomy in 2000 ? The patient is being seen by me today at the request of Dr. Billy Pulido III MD for my opinion and advice regarding dysphagia and worsening reflux type symptoms. ? ? PAST?MEDICAL?HISTORY PAST MEDICAL HISTORY Diagnosis Date - Disorder of bone and cartilage, unspecified ? - Essential hypertension, benign 09/15/2011 - Hearing loss in left ear 09/15/2011 - Hemorrhage of rectum and anus ? - Malignant neoplasm of thyroid gland (HCC) ? - Myalgia and myositis, unspecified ? - Rheumatoid arthritis(714.0) ? - Vitamin D deficiency 11/27/2014 ? ? PAST?SURGICAL?HISTORY PAST SURGICAL HISTORY Procedure Laterality Date - COLONOSCOP W/ OR W/O BRSH SPEC ? 05/28/2007 ? Colonoscopy-repeat in - PAST SURGICAL HISTORY OF ? ? ? breast cyst - PAST SURGICAL HISTORY OF ? ? ? partial resection right foot- 3rd toe - REMOVAL GALLBLADDER ? or ?? - REMOVAL OF TONSILS,<12 Y/O ? ? - THYROIDECTOMY ? 05/03/01 - TOTAL ABDOM HYSTERECTOMY ? CURRENT?MEDICATIONS ? Current Outpatient Prescriptions: omeprazole (PRILOSEC) 20 mg capsule Take 1 capsule by mouth daily before breakfast. 1/2 hr before meal. levothyroxine (LEVOXYL) 88 mcg tablet Take 1 tablet by mouth once daily. Take on empty stomach. For Thyroid lisinopril-hydrochlorothiazide (PRINZIDE,ZESTORETIC) 10-12.5 mg per tablet Take 1/2 tablet by mouth daily Cholecalciferol, Vitamin D3, 2,000 unit cap Take 1 tablet by mouth once daily. ca carbonate/vitamin d3/vit k(VIACTIV 500 MG-200 UNIT-40 MCG TAB) Take one(1) tablet two(2) times daily. ? No current facility-administered medications for this visit. ? ALLERGIES: Cipro [Ciprofloxacin]; Estriol Micronized; Codeine; Darvocet A500 [Propoxyphene N-Acetaminophen]; Diovan [Valsartan]; Norgesic [Rcfdtckzayag-Pvb-Wdkauwsm]; Ultram [Tramadol Hcl]; Zoloft [Sertraline Hcl] ? PERSONAL HISTORY: SOCIAL?HISTORY Social History Marital status: Spouse name: Years of education: Number of children: ? Social History Main Topics Smoking status: Never Smoker ? Smokeless status: Never Used Alcohol use: No Drug use: No Sexual activity: Not Currently ? ? FAMILY HISTORY: FAMILY?HISTORY FAMILY HISTORY Problem Relation Age of Onset - Colon Cancer Brother ? ? ? Colon CA not primary - Cancer Father ? ? ? LUNG- at age 57 ? ? REVIEW OF SYMPTOMS: The review of systems data was entered by the nurse and reviewed by me ? Nursing Notes: Ivy Wilson LPN 11/24/2017 2:02 PM Signed REVIEW OF SYSTEMS: General: The patient denies fatigue, denies weight loss, denies weight gain, denies feeling hot, and denies feelings of cold. Eyes: The patient denies glaucoma, denies eye injury/surgery, wears glasses or contacts. Ear/Nose/Throat: The patient NOTES allergies, denies hayfever, denies ear infections, and denies bloody noses. Cardiovascular: The patient denies chest pain, denies heart disease, NOTES high blood pressure,denies cardiac stent, denies prior heart attack, denies irregular heart beat, denies high cholesterol, denies poor circulation, denies heart failure, other cardiac issues, denies claudication, denies cold feet, denies peripheral arterial stent. Respiratory: The patient denies tuberculosis, denies pneumonia, denies frequent cough, denies pulmonary embolism, denies shortness of breath, and denies coughing up blood. Gastrointestinal: The patient NOTES difficulty swallowing, NOTES acid reflux, denies ulcers, denies vomiting, denies jaundice/hepatitis, denies gallbladder problems, denies black or tarry stools, denies hemorrhoids, denies bleeding from rectum, denies diverticulitis, denies constipation, denies diarrhea, denies loss of stool control, and denies hernias. Kidney/Bladder: The patient denies kidney stones, denies urine infections, and denies bloody urine. Skin: The patient denies a history of skin cancer, denies bleeding/changing moles, and denies a history of skin rash. Neurologic: The patient denies a history of epilepsy/convulsions, denies headaches, denies head/spinal injuries, and denies stroke/TIA. Psychiatric: The patient denies psychiatric medications, denies depression, and denies voices, denies substance abuse. Endocrine: The patient denies thyroid disorders, denies diabetes, and denies hormonal problems. Hematologic: The patient denies a history of bruising, denies bleeding, and denies anemia, denies blood clots. Infections: The patient denies a history of measles and mumps, denies rheumatic fever, and denies sexually transmitted diseases. Musculoskeletal: The patient denies back pain/injury, denies back problems, denies sciatica, denies knee/foot trouble, denies arthritis, or denies gout. ? ? When was patient's last Mammogram screening? 2017 ? Last Colonoscopy: 9 years ago ? Ivy Wilson LPN ?? PHYSICAL EXAMINATION: ? General: The patient is 67 year old female, well nourished, well hydrated in no acute distress. The patient is oriented to time, place, and person. ? VITALS: Blood pressure 166/78, pulse 88, weight 56.2 kg (124 lb). Body mass index is 21.28 kg/(m2). ? HEENT: Normal cephalic, ataumatic, pupils are equally round, sclera are anicteric, mucous membranes are moist, oropharynx is clear. Neck has no masses, asymmetry or lymphadenopathy. Thyroid is unremarkable. ? Respiratory: Clear to auscultation and percussion. Normal respiratory excursion and pattern. ? Cardiac: Examination is regular rate and rhythm. ? Abdominal exam: Soft, nontender, with no palpable masses. No hepatosplenomegaly. No palpable hernias. ? Rectal exam: exam deferred ? Extremities: no clubbing, cyanosis or edema. No adenopathy. ? Other: ? LABORATORY VALUES: As Noted ? RADIOLOGIC STUDIES: As Noted ? Assessment IMPRESSION: Dysphagia, chronic cough, reflux symptoms ? PLAN: I plan to perform upper endoscopy. We discussed the risks and benefits of the planned endoscopy. I have informed the patient that complications can occur including failure to complete the endoscopy and perforation. The patient had the opportunity to ask questions concerning the planned endoscopy. My staff has also explained the procedure to the patient in understandable terms and has given the patient printed material concerning the procedure. The patient freely consents to surgery. ? Diagnoses: (R13.10) Dysphagia, unspecified type (primary encounter diagnosis) ? My findings have been communicated to Dr. Billy Pulido III MD via shared medical record. This note will be forwarded to Dr. Billy Pulido III MD. ?? Return to Clinic: The patient is instructed to follow-up with me after the testing has been completed. ? Harman Soares MD NURSING PROG Observed: 11/28/2017 Status: COMPLETED Source: [place] 9:35 AM [facility] REPOSITORY HNO ID: [id number] Author: Mandy (Rn) ANAY Marquez Service: (none) Author Type: Registered Nurse Type: Nursing Progress Note Filed: 11/28/2017 10:48 AM Note Text: Dr. Soares notified of patient's elevated blood pressure. Patient is asymptomatic and states she has not taken her BP meds today. Orders given. Mandy Marquez RN SURGICAL PATHOLOGY Observed: 11/28/2017 Status: F Source: [place] 12:00 AM [facility] REPOSITORY Specimen originated from [facility] Specimen #: [id number] Submitting Physician: HARMAN SOARES ([id number]) FINAL DIAGNOSIS 1. Jejunum, biopsy (A) - - Small intestinal mucosa with no diagnostic alteration. - No morphologic evidence of celiac disease. 2. Antrum, biopsy (B) - Antral mucosa with chronic inactive gastritis. - Negative for Helicobacter pylori (immunostain). 3. Esophagogastric junction, biopsy (C) - Squamous mucosa with reactive epithelial changes. - Adjacent inflamed gastric mucosa. - Negative for intestinal metaplasia. 4. Mid esophagus, biopsy (D) - Squamous mucosa with no diagnostic alteration. - Negative for intraepithelial eosinophils. /eulalia 11/29/2017 COMMENT Given the background of chronic gastritis a Helicobacter pylori immunostain was performed on block A1 and is negative for Helicobacter pylori organisms. Laboratory Developed Test (LDT) Disclaimer: Positive and negative controls stain appropriately. Performance characteristics of immunohistochemical, immunofluorescent and chromogenic in-situ hybridization tests have been determined by [facility]'s [facility] Pathology and Laboratory Medicine [place] ([facility]) in a manner consistent with CLIA requirements. One or more of these tests have not been cleared or approved by the FDA. [facility] is regulated under CLIA as qualified to perform high-complexity testing. These tests are used for clinical purposes. They should not be regarded as investigational or for research. Jose Small MD, Ph.D. (Electronic Signature) SPECIMEN SUBMITTED A: JEJUNUM, BIOPSY B: ANTRUM, BIOPSY H/H C: ESOPHAGOGASTRIC JUNCTION, BIOPSY D: MID ESOPHAGUS, BIOPSY CLINICAL DATA R13.10 GROSS DESCRIPTION A. Received in formalin is one piece of alvarez, soft tissue measuring 0.2 x 0.2 x 0.2 cm. Totally submitted in one cassette. B. Received in formalin is one piece of alvarez, soft tissue measuring 0.4 x 0.2 x 0.2 cm. Totally submitted in one cassette. C. Received in formalin is one piece of alvarez, soft tissue measuring 0.3 x 0.2 x 0.2 cm. Totally submitted in one cassette. D. Received in formalin is one piece of alvarez, soft tissue measuring 0.2 x 0.2 x 0.1 cm. Totally submitted in one cassette. Gross examination performed at [facility], [address] [place] [address] 11/29/2017 1:15:40 AM Date of Report: 11/30/2017 Date of Procedure: 11/28/2017 Date of Receipt: 11/28/2017 Submitted by: HARMAN SOARES ([id number]) Location: W01 Diagnostic interpretation performed at [place] [address]. PROGRESS Observed: 11/25/2017 Status: COMPLETED Source: [place] 11:14 AM [facility] REPOSITORY HNO ID: [id number] Author: Harman Soares Service: (none) Author Type: Physician Type: Progress Notes Filed: 11/25/2017 11:17 AM Note Text: HISTORY AND PHYSICAL Alba Alfaro 1950 REFERRING PHYSICIAN: Billy Pulido III, MD CHIEF COMPLAINT: GERD HPI: The patient is a 67 year old female referred for endoscopy. Alba notes no history of colon complaints. The patient notes the following upper complaints: Alba notes abdominal pain. The pain occurs in the following locations: epigastric region . Alba notes heartburn. Alba notes dysphagia. This dysphagia was relatively rare in the past. The patient had an upper respiratory infection in August and she is noticed a worsening sensation of a chronic cough and more dysphagia to solids since that time. Alba denies a history of ulcers/ peptic ulcer disease. Alba has not undergone prior upper endoscopy. She underwent colonoscopy in 2017 which was unremarkable. While she states she tolerated the endoscopy very, very well, she is anxious about sedation and is anxious about repeat upper endoscopy but realizes that she has to have that procedure performed. She is not willing to undergo repeat colonoscopy at this time. The patient has a history of thyroid cancer. She underwent treatment for her thyroid cancer with radioiodine and underwent thyroidectomy in 2000 The patient is being seen by me today at the request of Dr. Billy uPlido, III MD for my opinion and advice regarding dysphagia and worsening reflux type symptoms. 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 - REMOVAL OF TONSILS,<12 Y/O - THYROIDECTOMY 05/03/01 - TOTAL ABDOM HYSTERECTOMY Current Outpatient Prescriptions: omeprazole (PRILOSEC) 20 mg capsule Take 1 capsule by mouth daily before breakfast. 1/2 hr before meal. levothyroxine (LEVOXYL) 88 mcg tablet Take 1 tablet by mouth once daily. Take on empty stomach. For Thyroid lisinopril-hydrochlorothiazide (PRINZIDE,ZESTORETIC) 10-12.5 mg per tablet Take 1/2 tablet by mouth daily Cholecalciferol, Vitamin D3, 2,000 unit cap Take 1 tablet by mouth once daily. ca carbonate/vitamin d3/vit k(VIACTIV 500 MG-200 UNIT-40 MCG TAB) Take one(1) tablet two(2) times daily. No current facility-administered medications for this visit. ALLERGIES: Cipro [Ciprofloxacin]; Estriol Micronized; Codeine; Darvocet A500 [Propoxyphene N-Acetaminophen]; Diovan [Valsartan]; Norgesic [Yfukexvkcsus-Xjl-Oystanlh]; Ultram [Tramadol Hcl]; Zoloft [Sertraline Hcl] PERSONAL HISTORY: Social History Marital status: Spouse name: Years of education: Number of children: Social History Main Topics Smoking status: Never Smoker Smokeless status: Never Used Alcohol use: No Drug use: No Sexual activity: Not Currently FAMILY HISTORY: FAMILY HISTORY Problem Relation Age of Onset - Colon Cancer Brother Colon CA not primary - Cancer Father LUNG- at age 57 REVIEW OF SYMPTOMS: The review of systems data was entered by the nurse and reviewed by me Nursing Notes: Ivy Wilson LPN 11/24/2017 2:02 PM Signed REVIEW OF SYSTEMS: General: The patient denies fatigue, denies weight loss, denies weight gain, denies feeling hot, and denies feelings of cold. Eyes: The patient denies glaucoma, denies eye injury/surgery, wears glasses or contacts. Ear/Nose/Throat: The patient NOTES allergies, denies hayfever, denies ear infections, and denies bloody noses. Cardiovascular: The patient denies chest pain, denies heart disease, NOTES high blood pressure,denies cardiac stent, denies prior heart attack, denies irregular heart beat, denies high cholesterol, denies poor circulation, denies heart failure, other cardiac issues, denies claudication, denies cold feet, denies peripheral arterial stent. Respiratory: The patient denies tuberculosis, denies pneumonia, denies frequent cough, denies pulmonary embolism, denies shortness of breath, and denies coughing up blood. Gastrointestinal: The patient NOTES difficulty swallowing, NOTES acid reflux, denies ulcers, denies vomiting, denies jaundice/hepatitis, denies gallbladder problems, denies black or tarry stools, denies hemorrhoids, denies bleeding from rectum, denies diverticulitis, denies constipation, denies diarrhea, denies loss of stool control, and denies hernias. Kidney/Bladder: The patient denies kidney stones, denies urine infections, and denies bloody urine. Skin: The patient denies a history of skin cancer, denies bleeding/changing moles, and denies a history of skin rash. Neurologic: The patient denies a history of epilepsy/convulsions, denies headaches, denies head/spinal injuries, and denies stroke/TIA. Psychiatric: The patient denies psychiatric medications, denies depression, and denies voices, denies substance abuse. Endocrine: The patient denies thyroid disorders, denies diabetes, and denies hormonal problems. Hematologic: The patient denies a history of bruising, denies bleeding, and denies anemia, denies blood clots. Infections: The patient denies a history of measles and mumps, denies rheumatic fever, and denies sexually transmitted diseases. Musculoskeletal: The patient denies back pain/injury, denies back problems, denies sciatica, denies knee/foot trouble, denies arthritis, or denies gout. When was patient's last Mammogram screening? 2017 Last Colonoscopy: 9 years ago Ivy Wilson LPN PHYSICAL EXAMINATION: General: The patient is 67 year old female, well nourished, well hydrated in no acute distress. The patient is oriented to time, place, and person. VITALS: Blood pressure 166/78, pulse 88, weight 56.2 kg (124 lb). Body mass index is 21.28 kg/(m2). HEENT: Normal cephalic, ataumatic, pupils are equally round, sclera are anicteric, mucous membranes are moist, oropharynx is clear. Neck has no masses, asymmetry or lymphadenopathy. Thyroid is unremarkable. Respiratory: Clear to auscultation and percussion. Normal respiratory excursion and pattern. Cardiac: Examination is regular rate and rhythm. Abdominal exam: Soft, nontender, with no palpable masses. No hepatosplenomegaly. No palpable hernias. Rectal exam: exam deferred Extremities: no clubbing, cyanosis or edema. No adenopathy. Other: LABORATORY VALUES: As Noted RADIOLOGIC STUDIES: As Noted Assessment IMPRESSION: Dysphagia, chronic cough, reflux symptoms PLAN: I plan to perform upper endoscopy. We discussed the risks and benefits of the planned endoscopy. I have informed the patient that complications can occur including failure to complete the endoscopy and perforation. The patient had the opportunity to ask questions concerning the planned endoscopy. My staff has also explained the procedure to the patient in understandable terms and has given the patient printed material concerning the procedure. The patient freely consents to surgery. Diagnoses: (R13.10) Dysphagia, unspecified type (primary encounter diagnosis) My findings have been communicated to Dr. Billy Pulido III MD via shared medical record. This note will be forwarded to Dr. Billy Pulido III MD. Return to Clinic: The patient is instructed to follow-up with me after the testing has been completed. Harman Soares MD CNOV Observed: 11/24/2017 Status: COMPLETED Source: [place] 2:00 PM [facility] REPOSITORY Office Visit (GENSWS) ALBA ALFARO ([id number]) 1950 F Date Time Provider Department 11/24/17 2:00 PM HARMAN SOARES During your visit today, we recorded the following information about you: Pulse Blood pressure Weight 88/minute 166/78 56.2 kg Ivy Wilson SALVADOR 11/24/2017 2:02 PM Signed REVIEW OF SYSTEMS: General: The patient denies fatigue, denies weight loss, denies weight gain, denies feeling hot, and denies feelings of cold. Eyes: The patient denies glaucoma, denies eye injury/surgery, wears glasses or contacts. Ear/Nose/Throat: The patient NOTES allergies, denies hayfever, denies ear infections, and denies bloody noses. Cardiovascular: The patient denies chest pain, denies heart disease, NOTES high blood pressure,denies cardiac stent, denies prior heart attack, denies irregular heart beat, denies high cholesterol, denies poor circulation, denies heart failure, other cardiac issues, denies claudication, denies cold feet, denies peripheral arterial stent. Respiratory: The patient denies tuberculosis, denies pneumonia, denies frequent cough, denies pulmonary embolism, denies shortness of breath, and denies coughing up blood. Gastrointestinal: The patient NOTES difficulty swallowing, NOTES acid reflux, denies ulcers, denies vomiting, denies jaundice/hepatitis, denies gallbladder problems, denies black or tarry stools, denies hemorrhoids, denies bleeding from rectum, denies diverticulitis, denies constipation, denies diarrhea, denies loss of stool control, and denies hernias. Kidney/Bladder: The patient denies kidney stones, denies urine infections, and denies bloody urine. Skin: The patient denies a history of skin cancer, denies bleeding/changing moles, and denies a history of skin rash. Neurologic: The patient denies a history of epilepsy/convulsions, denies headaches, denies head/spinal injuries, and denies stroke/TIA. Psychiatric: The patient denies psychiatric medications, denies depression, and denies voices, denies substance abuse. Endocrine: The patient denies thyroid disorders, denies diabetes, and denies hormonal problems. Hematologic: The patient denies a history of bruising, denies bleeding, and denies anemia, denies blood clots. Infections: The patient denies a history of measles and mumps, denies rheumatic fever, and denies sexually transmitted diseases. Musculoskeletal: The patient denies back pain/injury, denies back problems, denies sciatica, denies knee/foot trouble, denies arthritis, or denies gout. When was patient's last Mammogram screening? 2017 Last Colonoscopy: 9 years ago Ivy Soares MD 11/25/2017 11:17 AM Signed HISTORY AND PHYSICAL Alba Alfaro 1950 REFERRING PHYSICIAN: Billy Pulido III, MD CHIEF COMPLAINT: GERD HPI: The patient is a 67 year old female referred for endoscopy. Alba notes no history of colon complaints. The patient notes the following upper complaints: Alba notes abdominal pain. The pain occurs in the following locations: epigastric region . Alba notes heartburn. Alba notes dysphagia. This dysphagia was relatively rare in the past. The patient had an upper respiratory infection in August and she is noticed a worsening sensation of a chronic cough and more dysphagia to solids since that time. Alba denies a history of ulcers/ peptic ulcer disease. Alba has not undergone prior upper endoscopy. She underwent colonoscopy in 2017 which was unremarkable. While she states she tolerated the endoscopy very, very well, she is anxious about sedation and is anxious about repeat upper endoscopy but realizes that she has to have that procedure performed. She is not willing to undergo repeat colonoscopy at this time. The patient has a history of thyroid cancer. She underwent treatment for her thyroid cancer with radioiodine and underwent thyroidectomy in 2000 The patient is being seen by me today at the request of Dr. Billy Pulido, III MD for my opinion and advice regarding dysphagia and worsening reflux type symptoms. PAST MEDICAL HISTORY Diagnosis Date - Disorder of bone and cartilage, unspecified - Essential hypertension, benign 09/15/2011 - Hearing loss in left ear 09/15/2011 - Hemorrhage of rectum and anus - Malignant neoplasm of thyroid gland (HCC) - Myalgia and myositis, unspecified - Rheumatoid arthritis(714.0) - Vitamin D deficiency 11/27/2014 PAST SURGICAL HISTORY Procedure Laterality Date - COLONOSCOP W/ OR W/O [facility] SPEC 05/28/2007 Colonoscopy-repeat in - PAST SURGICAL HISTORY OF breast cyst - PAST SURGICAL HISTORY OF partial resection right foot- 3rd toe - REMOVAL GALLBLADDER ' or '02 ?? - REMOVAL OF TONSILS,ANDlt;13 Y/O - THYROIDECTOMY 05/03/01 - TOTAL ABDOM HYSTERECTOMY Current Outpatient Prescriptions: omeprazole (PRILOSEC) 20 mg capsule Take 1 capsule by mouth daily before breakfast. 1/2 hr before meal. levothyroxine (LEVOXYL) 88 mcg tablet Take 1 tablet by mouth once daily. Take on empty stomach. For Thyroid lisinopril-hydrochlorothiazide (PRINZIDE,ZESTORETIC) 10-12.5 mg per tablet Take 1/2 tablet by mouth daily Cholecalciferol, Vitamin D3, 2,000 unit cap Take 1 tablet by mouth once daily. ca carbonate/vitamin d3/vit k(VIACTIV 500 MG-200 UNIT-40 MCG TAB) Take one(1) tablet two(2) times daily. No current facility-administered medications for this visit. ALLERGIES: Cipro [Ciprofloxacin]; Estriol Micronized; Codeine; Darvocet A500 [Propoxyphene N-Acetaminophen]; Diovan [Valsartan]; Norgesic [Aplhgljkrmol-Krg-Avazioha]; Ultram [Tramadol Hcl]; Zoloft [Sertraline Hcl] PERSONAL HISTORY: Social History Marital status: Spouse name: Years of education: Number of children: Social History Main Topics Smoking status: Never Smoker Smokeless status: Never Used Alcohol use: No Drug use: No Sexual activity: Not Currently FAMILY HISTORY: FAMILY HISTORY Problem Relation Age of Onset - Colon Cancer Brother Colon CA not primary - Cancer Father LUNG- at age 57 REVIEW OF SYMPTOMS: The review of systems data was entered by the nurse and reviewed by me Nursing Notes: Ivy Wilosn LPN 11/24/2017 2:02 PM Signed REVIEW OF SYSTEMS: General: The patient denies fatigue, denies weight loss, denies weight gain, denies feeling hot, and denies feelings of cold. Eyes: The patient denies glaucoma, denies eye injury/surgery, wears glasses or contacts. Ear/Nose/Throat: The patient NOTES allergies, denies hayfever, denies ear infections, and denies bloody noses. Cardiovascular: The patient denies chest pain, denies heart disease, NOTES high blood pressure,denies cardiac stent, denies prior heart attack, denies irregular heart beat, denies high cholesterol, denies poor circulation, denies heart failure, other cardiac issues, denies claudication, denies cold feet, denies peripheral arterial stent. Respiratory: The patient denies tuberculosis, denies pneumonia, denies frequent cough, denies pulmonary embolism, denies shortness of breath, and denies coughing up blood. Gastrointestinal: The patient NOTES difficulty swallowing, NOTES acid reflux, denies ulcers, denies vomiting, denies jaundice/hepatitis, denies gallbladder problems, denies black or tarry stools, denies hemorrhoids, denies bleeding from rectum, denies diverticulitis, denies constipation, denies diarrhea, denies loss of stool control, and denies hernias. Kidney/Bladder: The patient denies kidney stones, denies urine infections, and denies bloody urine. Skin: The patient denies a history of skin cancer, denies bleeding/changing moles, and denies a history of skin rash. Neurologic: The patient denies a history of epilepsy/convulsions, denies headaches, denies head/spinal injuries, and denies stroke/TIA. Psychiatric: The patient denies psychiatric medications, denies depression, and denies voices, denies substance abuse. Endocrine: The patient denies thyroid disorders, denies diabetes, and denies hormonal problems. Hematologic: The patient denies a history of bruising, denies bleeding, and denies anemia, denies blood clots. Infections: The patient denies a history of measles and mumps, denies rheumatic fever, and denies sexually transmitted diseases. Musculoskeletal: The patient denies back pain/injury, denies back problems, denies sciatica, denies knee/foot trouble, denies arthritis, or denies gout. When was patient's last Mammogram screening? 2017 Last Colonoscopy: 9 years ago Ivy Wilson LPN PHYSICAL EXAMINATION: General: The patient is 67 year old female, well nourished, well hydrated in no acute distress. The patient is oriented to time, place, and person. VITALS: Blood pressure 166/78, pulse 88, weight 56.2 kg (124 lb). Body mass index is 21.28 kg/(m2). HEENT: Normal cephalic, ataumatic, pupils are equally round, sclera are anicteric, mucous membranes are moist, oropharynx is clear. Neck has no masses, asymmetry or lymphadenopathy. Thyroid is unremarkable. Respiratory: Clear to auscultation and percussion. Normal respiratory excursion and pattern. Cardiac: Examination is regular rate and rhythm. Abdominal exam: Soft, nontender, with no palpable masses. No hepatosplenomegaly. No palpable hernias. Rectal exam: exam deferred Extremities: no clubbing, cyanosis or edema. No adenopathy. Other: LABORATORY VALUES: As Noted RADIOLOGIC STUDIES: As Noted Assessment IMPRESSION: Dysphagia, chronic cough, reflux symptoms PLAN: I plan to perform upper endoscopy. We discussed the risks and benefits of the planned endoscopy. I have informed the patient that complications can occur including failure to complete the endoscopy and perforation. The patient had the opportunity to ask questions concerning the planned endoscopy. My staff has also explained the procedure to the patient in understandable terms and has given the patient printed material concerning the procedure. The patient freely consents to surgery. Diagnoses: (R13.10) Dysphagia, unspecified type (primary encounter diagnosis) My findings have been communicated to Dr. Billy Pulido III MD via shared medical record. This note will be forwarded to Dr. Billy Pulido III MD. Return to Clinic: The patient is instructed to follow-up with me after the testing has been completed. MD Harman Pace MD 11/25/2017 11:17 AM Signed The following instructions are important for you related to your office visit today with the [facility]. INSTRUCTIONS FOR YOUR UPPER ENDOSCOPY Do not eat or drink liquids after midnight. Do not eat or drink red liquids as this may interfere with the procedure. You will be sedated during your EGD/Upper endoscopy. You cannot drive yourself home after the procedure. You need a responsible person to drive you home after your upper endoscopy. You should plan to take it easy for the remainder of the day after your procedure. If you are of childbearing age, we will need to do a urine test the morning of your procedure before you have conscious sedation. So please do not void the morning of your procedure prior to arrival. If you have any difficulties or concerns, you should contact our office immediately. If you note any additional difficulties, questions, or concerns, you should contact our office immediately @ [phone] and ask to be transferred to the General Surgery department. Referring Provider: BILLY PULIDO III [[id number]] Allergies As of Date: 11/24/2017 Noted Allergy Reaction CIPRO (CIPROFLOXACIN) 09/02/2005 10 - Anaphylaxis ESTRIOL MICRONIZED 01/29/2014 14 - Other: See Comments Comments: Chest pain, severe nausea CODEINE 02/20/2006 Comments: vomitting DARVOCET A500 (PROPOXYPHENE N-CURT*12/06/2005 11 - Vomiting Comments: also paralysis DIOVAN (VALSARTAN) 02/04/2009 7 - Swelling NORGESIC ([id number]*12/06/2005 ULTRAM (TRAMADOL HCL) 03/29/2006 10 - Anaphylaxis ZOLOFT (SERTRALINE HCL) 01/22/2007 1 - Mental Status Change Date Reviewed: 11/24/2017 Reviewed by: Harman Soares - Fully Assessed Reason for Visit: GERD [548] Primary Visit Diagnosis:Dysphagia, unspecified type [R13.10] Order(s):EGD [8542693] Order #: [id number] FUTURE Prescriptions as of 11/24/2017 Sig: OMEPRAZOLE 20 MG CAPSULE,KADI* Take 1 capsule by mouth daily* LEVOTHYROXINE 88 MCG TABLET Take 1 tablet by mouth once d* LISINOPRIL 10 MG-HYDROCHLOROT* Take 1/2 tablet by mouth daily CHOLECALCIFEROL (VITAMIN D3) * Take 1 tablet by mouth once d* VIACTIV 500 MG-200 UNIT-40 MC* Take one(1) tablet two(2) laura* Problem List As Of Date 11/24/2017 Noted Resolved Rheumatoid arthritis (HCC) [M06.9] IRRITABLE COLON [K58.9] INVALID FOR* PRIMARY HYPERPARATHYROIDISM [E21.0] INVALID FOR*06/23/2008 Calcaneal spur [M77.30] INVALID FOR*05/23/2016 History of thyroid cancer [Z85.850] INVALID FOR* More... Hearing loss in left ear [H91.92] INVALID FOR* Tinnitus [H93.19] INVALID FOR* Hypertension [I10] INVALID FOR* Symptomatic menopausal or female climacteric st*INVALID FOR* Postsurgical hypothyroidism [E89.0] INVALID FOR* Vitamin D deficiency [E55.9] INVALID FOR* Bilateral impacted cerumen [H61.23] INVALID FOR*05/23/2016 Other instructions from your clinician: The following instructions are important for you related to your office visit today with the [facility]. INSTRUCTIONS FOR YOUR UPPER ENDOSCOPY Do not eat or drink liquids after midnight. Do not eat or drink red liquids as this may interfere with the procedure. You will be sedated during your EGD/Upper endoscopy. You cannot drive yourself home after the procedure. You need a responsible person to drive you home after your upper endoscopy. You should plan to take it easy for the remainder of the day after your procedure. If you are of childbearing age, we will need to do a urine test the morning of your procedure before you have conscious sedation. So please do not void the morning of your procedure prior to arrival. If you have any difficulties or concerns, you should contact our office immediately. If you note any additional difficulties, questions, or concerns, you should contact our office immediately @ [phone] and ask to be transferred to the General Surgery department. Visit Notes: >> Ivy Wilson LPN MonNov 24, 2017 2:01 PM Status: Signed REVIEW OF SYSTEMS: General: The patient denies fatigue, denies weight loss, denies weight gain, denies feeling hot, and denies feelings of cold. Eyes: The patient denies glaucoma, denies eye injury/surgery, wears glasses or contacts. Ear/Nose/Throat: The patient NOTES allergies, denies hayfever, denies ear infections, and denies bloody noses. Cardiovascular: The patient denies chest pain, denies heart disease, NOTES high blood pressure,denies cardiac stent, denies prior heart attack, denies irregular heart beat, denies high cholesterol, denies poor circulation, denies heart failure, other cardiac issues, denies claudication, denies cold feet, denies peripheral arterial stent. Respiratory: The patient denies tuberculosis, denies pneumonia, denies frequent cough, denies pulmonary embolism, denies shortness of breath, and denies coughing up blood. Gastrointestinal: The patient NOTES difficulty swallowing, NOTES acid reflux, denies ulcers, denies vomiting, denies jaundice/hepatitis, denies gallbladder problems, denies black or tarry stools, denies hemorrhoids, denies bleeding from rectum, denies diverticulitis, denies constipation, denies diarrhea, denies loss of stool control, and denies hernias. Kidney/Bladder: The patient denies kidney stones, denies urine infections, and denies bloody urine. Skin: The patient denies a history of skin cancer, denies bleeding/changing moles, and denies a history of skin rash. Neurologic: The patient denies a history of epilepsy/convulsions, denies headaches, denies head/spinal injuries, and denies stroke/TIA. Psychiatric: The patient denies psychiatric medications, denies depression, and denies voices, denies substance abuse. Endocrine: The patient denies thyroid disorders, denies diabetes, and denies hormonal problems. Hematologic: The patient denies a history of bruising, denies bleeding, and denies anemia, denies blood clots. Infections: The patient denies a history of measles and mumps, denies rheumatic fever, and denies sexually transmitted diseases. Musculoskeletal: The patient denies back pain/injury, denies back problems, denies sciatica, denies knee/foot trouble, denies arthritis, or denies gout. When was patient's last Mammogram screening? 2017 Last Colonoscopy: 9 years ago Ivy Wilson LPN Follow-up and Disposition History Recorded Encounter Status:Closed by HARMAN SOARES MD on 11/25/17 HOSP Observed: 11/24/2017 Status: COMPLETED Source: [place] 12:00 AM [facility] REPOSITORY Patient:Alba Alfaro MRN: <[id number]> Height:5' 4(1.626 m) Weight:123 lb 14.4 oz (56.2 kg) Outpatient Medications as of 11/28/17: omeprazole (PRILOSEC) 20 mg capsule levothyroxine (LEVOXYL) 88 mcg tablet lisinopril-hydrochlorothiazide (PRINZIDE,ZESTORETIC) 10-12.5 mg per tablet Cholecalciferol, Vitamin D3, 2,000 unit cap ca carbonate/vitamin d3/vit k(VIACTIV 500 MG-200 UNIT-40 MCG TAB) Admission/Clinic Administered Medications as of 11/28/17: lactated ringers infusion Problem List: Rheumatoid arthritis (HCC) [M06.9] Irritable bowel syndrome [K58.9] History of thyroid cancer [Z85.850] Hearing loss in left ear [H91.92] Tinnitus [H93.19] Hypertension [I10] Symptomatic menopausal or female climacteric states [N95.1] Postsurgical hypothyroidism [E89.0] Vitamin D deficiency [E55.9] Allergies: Cipro [Ciprofloxacin] Estriol Micronized Codeine Darvocet A500 [Propoxyphene N-Acetaminophen] Diovan [Valsartan] Norgesic [Wiscydatdhxg-Kag-Faasyfue] Ultram [Tramadol Hcl] Zoloft [Sertraline Hcl] Date Verified: 11/28/17 Lab Values No results within the last 30 days for the following basenames: K,HCT Progress Notes ([facility]): Navjot Sarmiento Surg Coord 11/24/2017 3:27 PM Signed 11-28-2017 EGD [facility] Navjot Sarmiento Surg Coord Progress Notes ([facility]): Ivy Wilson LPN 11/24/2017 2:02 PM Signed REVIEW OF SYSTEMS: General: The patient denies fatigue, denies weight loss, denies weight gain, denies feeling hot, and denies feelings of cold. Eyes: The patient denies glaucoma, denies eye injury/surgery, wears glasses or contacts. Ear/Nose/Throat: The patient NOTES allergies, denies hayfever, denies ear infections, and denies bloody noses. Cardiovascular: The patient denies chest pain, denies heart disease, NOTES high blood pressure,denies cardiac stent, denies prior heart attack, denies irregular heart beat, denies high cholesterol, denies poor circulation, denies heart failure, other cardiac issues, denies claudication, denies cold feet, denies peripheral arterial stent. Respiratory: The patient denies tuberculosis, denies pneumonia, denies frequent cough, denies pulmonary embolism, denies shortness of breath, and denies coughing up blood. Gastrointestinal: The patient NOTES difficulty swallowing, NOTES acid reflux, denies ulcers, denies vomiting, denies jaundice/hepatitis, denies gallbladder problems, denies black or tarry stools, denies hemorrhoids, denies bleeding from rectum, denies diverticulitis, denies constipation, denies diarrhea, denies loss of stool control, and denies hernias. Kidney/Bladder: The patient denies kidney stones, denies urine infections, and denies bloody urine. Skin: The patient denies a history of skin cancer, denies bleeding/changing moles, and denies a history of skin rash. Neurologic: The patient denies a history of epilepsy/convulsions, denies headaches, denies head/spinal injuries, and denies stroke/TIA. Psychiatric: The patient denies psychiatric medications, denies depression, and denies voices, denies substance abuse. Endocrine: The patient denies thyroid disorders, denies diabetes, and denies hormonal problems. Hematologic: The patient denies a history of bruising, denies bleeding, and denies anemia, denies blood clots. Infections: The patient denies a history of measles and mumps, denies rheumatic fever, and denies sexually transmitted diseases. Musculoskeletal: The patient denies back pain/injury, denies back problems, denies sciatica, denies knee/foot trouble, denies arthritis, or denies gout. When was patient's last Mammogram screening? 2017 Last Colonoscopy: 9 years ago Ivy Soares MD 11/25/2017 11:17 AM Signed HISTORY AND PHYSICAL Alba Alfaro 1950 REFERRING PHYSICIAN: Billy Pulido III, MD CHIEF COMPLAINT: GERD HPI: The patient is a 67 year old female referred for endoscopy. Alba notes no history of colon complaints. The patient notes the following upper complaints: Alba notes abdominal pain. The pain occurs in the following locations: epigastric region . Alba notes heartburn. Alba notes dysphagia. This dysphagia was relatively rare in the past. The patient had an upper respiratory infection in August and she is noticed a worsening sensation of a chronic cough and more dysphagia to solids since that time. Alba denies a history of ulcers/ peptic ulcer disease. Alba has not undergone prior upper endoscopy. She underwent colonoscopy in 2017 which was unremarkable. While she states she tolerated the endoscopy very, very well, she is anxious about sedation and is anxious about repeat upper endoscopy but realizes that she has to have that procedure performed. She is not willing to undergo repeat colonoscopy at this time. The patient has a history of thyroid cancer. She underwent treatment for her thyroid cancer with radioiodine and underwent thyroidectomy in 2000 The patient is being seen by me today at the request of Dr. Billy Pulido III MD for my opinion and advice regarding dysphagia and worsening reflux type symptoms. PAST MEDICAL HISTORY Diagnosis Date - Disorder of bone and cartilage, unspecified - Essential hypertension, benign 09/15/2011 - Hearing loss in left ear 09/15/2011 - Hemorrhage of rectum and anus - Malignant neoplasm of thyroid gland (HCC) - Myalgia and myositis, unspecified - Rheumatoid arthritis(714.0) - Vitamin D deficiency 11/27/2014 PAST SURGICAL HISTORY Procedure Laterality Date - COLONOSCOP W/ OR W/O [facility] 05/28/2007 Colonoscopy-repeat in - PAST SURGICAL HISTORY OF breast cyst - PAST SURGICAL HISTORY OF partial resection right foot- 3rd toe - REMOVAL GALLBLADDER ' or '02 ?? - REMOVAL OF TONSILS,<12 Y/O - THYROIDECTOMY 05/03/01 - TOTAL ABDOM HYSTERECTOMY Current Outpatient Prescriptions: omeprazole (PRILOSEC) 20 mg capsule Take 1 capsule by mouth daily before breakfast. 1/2 hr before meal. levothyroxine (LEVOXYL) 88 mcg tablet Take 1 tablet by mouth once daily. Take on empty stomach. For Thyroid lisinopril-hydrochlorothiazide (PRINZIDE,ZESTORETIC) 10-12.5 mg per tablet Take 1/2 tablet by mouth daily Cholecalciferol, Vitamin D3, 2,000 unit cap Take 1 tablet by mouth once daily. ca carbonate/vitamin d3/vit k(VIACTIV 500 MG-200 UNIT-40 MCG TAB) Take one(1) tablet two(2) times daily. No current facility-administered medications for this visit. ALLERGIES: Cipro [Ciprofloxacin]; Estriol Micronized; Codeine; Darvocet A500 [Propoxyphene N-Acetaminophen]; Diovan [Valsartan]; Norgesic [Kkuecdozjboy-Ifb-Rdhwuesx]; Ultram [Tramadol Hcl]; Zoloft [Sertraline Hcl] PERSONAL HISTORY: Social History Marital status: Spouse name: Years of education: Number of children: Social History Main Topics Smoking status: Never Smoker Smokeless status: Never Used Alcohol use: No Drug use: No Sexual activity: Not Currently FAMILY HISTORY: FAMILY HISTORY Problem Relation Age of Onset - Colon Cancer Brother Colon CA not primary - Cancer Father LUNG- at age 57 REVIEW OF SYMPTOMS: The review of systems data was entered by the nurse and reviewed by la Nursing Notes: Ivy Wilson LPN 11/24/2017 2:02 PM Signed REVIEW OF SYSTEMS: General: The patient denies fatigue, denies weight loss, denies weight gain, denies feeling hot, and denies feelings of cold. Eyes: The patient denies glaucoma, denies eye injury/surgery, wears glasses or contacts. Ear/Nose/Throat: The patient NOTES allergies, denies hayfever, denies ear infections, and denies bloody noses. Cardiovascular: The patient denies chest pain, denies heart disease, NOTES high blood pressure,denies cardiac stent, denies prior heart attack, denies irregular heart beat, denies high cholesterol, denies poor circulation, denies heart failure, other cardiac issues, denies claudication, denies cold feet, denies peripheral arterial stent. Respiratory: The patient denies tuberculosis, denies pneumonia, denies frequent cough, denies pulmonary embolism, denies shortness of breath, and denies coughing up blood. Gastrointestinal: The patient NOTES difficulty swallowing, NOTES acid reflux, denies ulcers, denies vomiting, denies jaundice/hepatitis, denies gallbladder problems, denies black or tarry stools, denies hemorrhoids, denies bleeding from rectum, denies diverticulitis, denies constipation, denies diarrhea, denies loss of stool control, and denies hernias. Kidney/Bladder: The patient denies kidney stones, denies urine infections, and denies bloody urine. Skin: The patient denies a history of skin cancer, denies bleeding/changing moles, and denies a history of skin rash. Neurologic: The patient denies a history of epilepsy/convulsions, denies headaches, denies head/spinal injuries, and denies stroke/TIA. Psychiatric: The patient denies psychiatric medications, denies depression, and denies voices, denies substance abuse. Endocrine: The patient denies thyroid disorders, denies diabetes, and denies hormonal problems. Hematologic: The patient denies a history of bruising, denies bleeding, and denies anemia, denies blood clots. Infections: The patient denies a history of measles and mumps, denies rheumatic fever, and denies sexually transmitted diseases. Musculoskeletal: The patient denies back pain/injury, denies back problems, denies sciatica, denies knee/foot trouble, denies arthritis, or denies gout. When was patient's last Mammogram screening? 2017 Last Colonoscopy: 9 years ago Ivy Wilson LPN PHYSICAL EXAMINATION: General: The patient is 67 year old female, well nourished, well hydrated in no acute distress. The patient is oriented to time, place, and person. VITALS: Blood pressure 166/78, pulse 88, weight 56.2 kg (124 lb). Body mass index is 21.28 kg/(m2). HEENT: Normal cephalic, ataumatic, pupils are equally round, sclera are anicteric, mucous membranes are moist, oropharynx is clear. Neck has no masses, asymmetry or lymphadenopathy. Thyroid is unremarkable. Respiratory: Clear to auscultation and percussion. Normal respiratory excursion and pattern. Cardiac: Examination is regular rate and rhythm. Abdominal exam: Soft, nontender, with no palpable masses. No hepatosplenomegaly. No palpable hernias. Rectal exam: exam deferred Extremities: no clubbing, cyanosis or edema. No adenopathy. Other: LABORATORY VALUES: As Noted RADIOLOGIC STUDIES: As Noted Assessment IMPRESSION: Dysphagia, chronic cough, reflux symptoms PLAN: I plan to perform upper endoscopy. We discussed the risks and benefits of the planned endoscopy. I have informed the patient that complications can occur including failure to complete the endoscopy and perforation. The patient had the opportunity to ask questions concerning the planned endoscopy. My staff has also explained the procedure to the patient in understandable terms and has given the patient printed material concerning the procedure. The patient freely consents to surgery. Diagnoses: (R13.10) Dysphagia, unspecified type (primary encounter diagnosis) My findings have been communicated to Dr. Billy Pulido III MD via shared medical record. This note will be forwarded to Dr. Billy Pulido III MD. Return to Clinic: The patient is instructed to follow-up with me after the testing has been completed. MD Harman Pace MD 11/25/2017 11:17 AM Signed The following instructions are important for you related to your office visit today with the [facility]. INSTRUCTIONS FOR YOUR UPPER ENDOSCOPY Do not eat or drink liquids after midnight. Do not eat or drink red liquids as this may interfere with the procedure. You will be sedated during your EGD/Upper endoscopy. You cannot drive yourself home after the procedure. You need a responsible person to drive you home after your upper endoscopy. You should plan to take it easy for the remainder of the day after your procedure. If you are of childbearing age, we will need to do a urine test the morning of your procedure before you have conscious sedation. So please do not void the morning of your procedure prior to arrival. If you have any difficulties or concerns, you should contact our office immediately. If you note any additional difficulties, questions, or concerns, you should contact our office immediately @ [phone] and ask to be transferred to the General Surgery department. PROGRESS Observed: 11/14/2017 Status: COMPLETED Source: [place] 3:[address] [facility] REPOSITORY HNO ID: [id number] Author: Billy Pulido III Service: (none) Author Type: Physician Type: Progress Notes Filed: 11/14/2017 6:14 PM Note Text: SUBJECTIVE: This is a 67 year old female that is here today for pt developed H3N3 viral infection in August, with tamiflu though she had repeated emesis of brown material and the tamiflu. Went to ER and received IV fluids, IV Tamiflu. After going home she had recurrent sensation of dyspnea with persistent dry cough. Since these symptoms she has had persistent dry cough and throat clearing associated with sense of mucus in throat/anterior neck. Hx of thyroid cancer, s/p thyroidectomy.(1999). Also has had hair loss past 2 mos. Notes bad heartburn after eating OJ, cinnamon. Some wt loss. No smoking or ETOH. PAST MEDICAL HISTORY Diagnosis Date - Disorder of bone and cartilage, unspecified - Essential hypertension, benign 09/15/2011 - Hearing loss in left ear 09/15/2011 - Hemorrhage of rectum and anus - Malignant neoplasm of thyroid gland (HCC) - Myalgia and myositis, unspecified - Rheumatoid arthritis(714.0) - Vitamin D deficiency 11/27/2014 Current Outpatient Prescriptions on File Prior to Visit: levothyroxine (LEVOXYL) 88 mcg tablet Take 1 tablet by mouth once daily. Take on empty stomach. For Thyroid lisinopril-hydrochlorothiazide (PRINZIDE,ZESTORETIC) 10-12.5 mg per tablet Take 1/2 tablet by mouth daily Cholecalciferol, Vitamin D3, 2,000 unit cap Take 1 tablet by mouth once daily. ca carbonate/vitamin d3/vit k(VIACTIV 500 MG-200 UNIT-40 MCG TAB) Take one(1) tablet two(2) times daily. No current facility-administered medications on file prior to visit. FAMILY HISTORY Problem Relation Age of Onset - Colon Cancer Brother Colon CA not primary - Cancer Father LUNG- at age 57 Social History Substance Use Topics - Smoking status: Never Smoker - Smokeless tobacco: Never Used - Alcohol use No BP 135/74 Pulse 92 Resp 20 Wt 54 kg (119 lb) BMI 20.43 kg/m2 . OBJECTIVE: APPEARANCE Well appearing, alert, in no acute distress, well-hydrated, well nourished., thinning hair top of head THROAT normal, no erythema and no sores or ulcers NECK Supple, no adenopathy; thyroid absent, normal size, no bruits, HEART RRR with normal S1 and S2, no murmurs, no gallops, no JVD appreciated LUNG clear to auscultation ABDOMEN soft, non-tender, non-distended, without organomegaly or palpable masses, no tenderness to palpation ASSESSMENT: I suspect GERD probably with esophagitis following emesis episodes cough due to GERD hair loss due to stress PLAN: avoid problem foods and avoid reclining w/i 1 hour after a meal start prilosec 20mg every AM refer to Dr Soares for upper endoscopy same other medications FABIO Rachel MD, III MD CNOV Observed: 11/14/2017 Status: COMPLETED Source: [place] 3:20 PM [facility] REPOSITORY Office Visit (FAMPWS) ALBA ALFARO ([id number]) 1950 F Date Time Provider Department 11/14/17 3:20 PM BILLY PULIDO III [facility] During your visit today, we recorded the following information about you: Pulse Respiration Blood pressure Weight 92/minute 20/minute 135/74 54 kg Billy Pulido III MD 11/14/2017 6:14 PM Signed SUBJECTIVE: This is a 67 year old female that is here today for pt developed H3N3 viral infection in August, with tamiflu though she had repeated emesis of brown material and the tamiflu. Went to ER and received IV fluids, IV Tamiflu. After going home she had recurrent sensation of dyspnea with persistent dry cough. Since these symptoms she has had persistent dry cough and throat clearing associated with sense of mucus in throat/anterior neck. Hx of thyroid cancer, s/p thyroidectomy.(1999). Also has had hair loss past 2 mos. Notes bad heartburn after eating OJ, cinnamon. Some wt loss. No smoking or ETOH. PAST MEDICAL HISTORY Diagnosis Date - Disorder of bone and cartilage, unspecified - Essential hypertension, benign 09/15/2011 - Hearing loss in left ear 09/15/2011 - Hemorrhage of rectum and anus - Malignant neoplasm of thyroid gland (HCC) - Myalgia and myositis, unspecified - Rheumatoid arthritis(714.0) - Vitamin D deficiency 11/27/2014 Current Outpatient Prescriptions on File Prior to Visit: levothyroxine (LEVOXYL) 88 mcg tablet Take 1 tablet by mouth once daily. Take on empty stomach. For Thyroid lisinopril-hydrochlorothiazide (PRINZIDE,ZESTORETIC) 10-12.5 mg per tablet Take 1/2 tablet by mouth daily Cholecalciferol, Vitamin D3, 2,000 unit cap Take 1 tablet by mouth once daily. ca carbonate/vitamin d3/vit k(VIACTIV 500 MG-200 UNIT-40 MCG TAB) Take one(1) tablet two(2) times daily. No current facility-administered medications on file prior to visit. FAMILY HISTORY Problem Relation Age of Onset - Colon Cancer Brother Colon CA not primary - Cancer Father LUNG- at age 58 Social History Substance Use Topics - Smoking status: Never Smoker - Smokeless tobacco: Never Used - Alcohol use No BP 135/74 Pulse 92 Resp 20 Wt 54 kg (119 lb) BMI 20.43 kg/m2 . OBJECTIVE: APPEARANCE Well appearing, alert, in no acute distress, well- hydrated, well nourished., thinning hair top of head THROAT normal, no erythema and no sores or ulcers NECK Supple, no adenopathy; thyroid absent, normal size, no bruits, HEART RRR with normal S1 and S2, no murmurs, no gallops, no JVD appreciated LUNG clear to auscultation ABDOMEN soft, non-tender, non-distended, without organomegaly or palpable masses, no tenderness to palpation ASSESSMENT: I suspect GERD probably with esophagitis following emesis episodes cough due to GERD hair loss due to stress PLAN: avoid problem foods and avoid reclining w/i 1 hour after a meal start prilosec 20mg every AM refer to Dr Soares for upper endoscopy same other medications FABIO Rachel MD, III MD Frank A Cebul, III MD 11/14/2017 4:16 PM Signed PLAN: avoid problem foods and avoid reclining w/i 1 hour after a meal start prilosec 20mg every AM refer to Dr Soares for upper endoscopy same other medications Billy Pulido III MD Referring Provider: SELF [[id number]] Allergies As of Date: 11/14/2017 Noted Allergy Reaction CIPRO (CIPROFLOXACIN) 09/02/2005 10 - Anaphylaxis ESTRIOL MICRONIZED 01/29/2014 14 - Other: See Comments Comments: Chest pain, severe nausea CODEINE 02/20/2006 Comments: vomitting DARVOCET A500 (PROPOXYPHENE N-CURT*12/06/2005 11 - Vomiting Comments: also paralysis DIOVAN (VALSARTAN) 02/04/2009 7 - Swelling NORGESIC (YCGYANRHXWCR-TVH-GTAHAN*12/06/2005 ULTRAM (TRAMADOL HCL) 03/29/2006 10 - Anaphylaxis ZOLOFT (SERTRALINE HCL) 01/22/2007 1 - Mental Status Change Date Reviewed: 11/14/2017 Reviewed by: Rufina York LPN - Fully Assessed Reason for Visit: Difficulty Swallowing [207] Reason For Visit History Recorded Primary Visit Diagnosis:History of thyroid cancer [Z85.850] Other Visit Diagnosis:GERD with esophagitis [K21.0] Order(s):omeprazole (PRILOSEC) 20 mg capsuleTake 1 capsule by mouth daily before breakfast. 1/2 hr before meal.Disp: 30 capsuleRfl: 5 CONSULT TO GENERAL SURGERY [9011] Order #: [id number]: 1 Prescriptions as of 11/14/2017 Sig: LEVOTHYROXINE 88 MCG TABLET Take 1 tablet by mouth once d* LISINOPRIL 10 MG-HYDROCHLOROT* Take 1/2 tablet by mouth daily CHOLECALCIFEROL (VITAMIN D3) * Take 1 tablet by mouth once d* VIACTIV 500 MG-200 UNIT-40 MC* Take one(1) tablet two(2) laura* OMEPRAZOLE 20 MG CAPSULE,KADI* Take 1 capsule by mouth daily* Problem List As Of Date 11/14/2017 Noted Resolved Rheumatoid arthritis (HCC) [M06.9] IRRITABLE COLON [K58.9] INVALID FOR* PRIMARY HYPERPARATHYROIDISM [E21.0] INVALID FOR*06/23/2008 Calcaneal spur [M77.30] INVALID FOR*05/23/2016 History of thyroid cancer [Z85.850] INVALID FOR* More... Hearing loss in left ear [H91.92] INVALID FOR* Tinnitus [H93.19] INVALID FOR* Hypertension [I10] INVALID FOR* Symptomatic menopausal or female climacteric st*INVALID FOR* Postsurgical hypothyroidism [E89.0] INVALID FOR* Vitamin D deficiency [E55.9] INVALID FOR* Bilateral impacted cerumen [H61.23] INVALID FOR*05/23/2016 Other instructions from your clinician: PLAN: avoid problem foods and avoid reclining w/i 1 hour after a meal start prilosec 20mg every AM refer to Dr Soares for upper endoscopy same other medications Billy Pulido III MD Prescriptions ordered this encounter Disp Refills Start End OMEPRAZOLE 20 MG CAPSULE,DELAYED REL* 30 c* 5 11/14/2017 Route: ORAL Sig: Take 1 capsule by mouth daily before breakfast. 1/2 hr before meal. Encounter Status:Closed by BILLY PULIDO III, MD on 11/14/17 ALLERGIES ALLERGIES DATE TYPE / NAME / CODE REACTION SEVERITY SOURCE CODE 08/15/2018 Drug propoxyphene Vomiting Unknown [place] Allergy/41 napsylate/[id number] Community [id number]([facility]) Repository 08/15/2018 Drug ciprofloxacin Hives Unknown [place] Allergy/41 HCl/[id number](RXNO Community [id number]([facility]) [facility]) Repository 08/15/2018 Drug acetaminophen/F0060 Vomiting Unknown [place] Allergy/41 27775(RXNORM) Community [id number]([facility]) Repository 08/15/2018 Drug ciprofloxacin/F0060 Hives Unknown [place] Allergy/41 81791(RXNORM) [facility] [id number]([facility]) Repository 05/01/2018 DRUG LISINOPRIL COUGH [facility] [id number]([facility]) Repository 01/29/2014 DRUG ESTRIOL MICRONIZED OTHER: SEE C High [facility]41 Clinic Main [id number]([facility]) Repository 02/04/2009 DRUG VALSARTAN SWELLING [facility] [id number]([facility]) Repository 01/22/2007 DRUG SERTRALINE HCL Mental Chg [facility] [id number]([facility]) Repository 03/29/2006 DRUG TRAMADOL HCL ANAPHYLAXIS [facility] [id number]([facility]) Repository 02/20/2006 [facility] [id number][facility] Repository 12/06/2005 DRUG/60857 PROPOXYPHENE Vomiting [place] 1003([facility] N-ACETAMINOPHEN Clinic Main D CT) [place] Repository 12/06/2005 DRUG/32960 [id number] [facility] 1003([facility] FFEINE Clinic Main D [facility]) [place] Repository 09/02/2005 DRUG CIPROFLOXACIN ANAPHYLAXIS High [facility]/41 Clinic Main [id number](SN [place] [facility]) Repository ENCOUNTERS ENCOUNTERS ADMIT/DISCHARGE ACCOUNT ADMITTING ENCOUNTER LOCATION SOURCE NUMBER CLASS 08/15/2018/08/15/20 [id number] Emergency Karolina Karolina [address] [place] [address] ing:ED Repository 07/31/2018/08/01/20 [id number] Ambulatory [address] Main [place] Repository 07/09/2018/07/10/20 [id number] Ambulatory [address] [place] Repository 07/09/2018/07/09/20 [id number] Ambulatory [address] Main [place] Repository 06/26/2018/06/26/20 [id number] Ambulatory [address] [place] Repository 06/04/2018/06/05/20 [id number] Ambulatory [address] Main [place] Repository 05/01/2018/05/03/20 [id number] Ambulatory [address] Main [place] Repository 04/10/2018/04/10/20 [id number] Ambulatory [address] Main [place] Repository 04/10/2018/04/10/20 [id number] Ambulatory [address] Main [place] Repository 04/10/2018/04/11/20 [id number] Ambulatory [address] Main [place] Repository 03/22/2018/03/22/20 [id number] [place] [address] [place] [address] ing:ED Repository 12/05/2017/12/09/19 [id number] Ambulatory [address] Main [place] Repository 11/28/2017 [id number] FANY [facility] Main [place] Repository 11/24/2017/11/29/19 [id number] Ambulatory [address] Main [place] Repository 11/14/2017/11/16/19 [id number] Ambulatory [address] Main [place] Repository PAYERS PAYERS ENCOUNTER GUARANTOR PAYER SUBSCRIBER SOURCE 08/15/2018 OSMANI [id number] Insurance:[place]: Community [place] MEDICAREPolicy [id number] [address] [facility], Number: Repository [place] [address]Uhr: 330 [id number] [phone] () Date:2426-07-[address] [address]OA: 08/15/2018 Secondary NOT GIVENUNK Karolina Insurance:SELF PAY [facility] Number: Effective Repository Date:2018-08-15 03/22/2018 OSMANI [id number] Insurance:[place]: Community [place] MEDICAREPolicy [id number] [address], Number: Repository [place] [address]Sfe: 330 [id number] [phone] () Date:6334-02-68[address] [address]RE: 03/22/2018 Secondary NOT GIVENUNK [place] Insurance:SELF PAY [facility] Number: Effective Repository Date:2018-03-22
== END 2018-08-15 12:03 | disposition home or self-care (01) ==
LOC: ED 12:01
PROVIDERS: Emergency Provider Emergency Medicine; Family Provider Family Medicine; PCP Family Medicine
DX: S61.011A Laceration without foreign body of right thumb without damage to nail, initial encounter (principal); W26.8XXA Contact with other sharp object(s), not elsewhere classified, initial encounter; Y93.9 Activity, unspecified; Y92.9 Unspecified place or not applicable
CPT/HCPCS: 99282

== ENCOUNTER 2020-08-06 09:39 | Emergency (ER) | payer MEDICARE, SELFPAY ==
[2020-08-06 09:40] VITALS: BP 147/112; PULSE 89; RESP 16; TEMP 36.4; O2SAT 99; BMI 22.8
--- NOTE | 2020-08-06 09:47 | ED.DCSUM_ITS ---
History of Present Illness Chief Complaint: Upper Extremity Injury Narrative: This patient is a 70-year-old female who presents after mechanical fall. She slipped on ice. She fell onto an outstretched left hand. She complains of severe pain and deformity of the left wrist. No numbness or tingling. She denies any other injury. She did not hit her head. She is not anticoagulated. No other injuries such as to the chest abdomen back or other extremities. Past Medical History - Allergies and Home Meds Allergies/Adverse Reactions: Allergies ciprofloxacin [From Cipro] Allergy (Verified 08/06/20 09:39) Hives ciprofloxacin HCl [From Cipro] Allergy (Verified 08/06/20 09:39) Hives acetaminophen [From Darvocet-N] Adverse Reaction (Verified 08/06/20 09:39) Vomiting propoxyphene napsylate [From Darvocet-N] Adverse Reaction (Verified 08/06/20 09:39) Vomiting Primary Care Physician: Billy Pulido III, MD [Primary Care Provider] - Past Medical History: - - Hypothyroidism, history of thyroid cancer with thyroidectomy Surgical History: - - Thyroidectomy Smoking Status: Never smoker Review of Systems Cardiovascular: Denies: Chest pain Respiratory: Denies: Dyspnea Gastrointestinal: Denies: Abdominal pain Musculoskeletal: Reports: Extremity Pain. Denies: Neck pain, Back pain Neurological: Denies: Headache, Parasthesia, Numbness Physical Exam Vital Signs/Narrative: Vital Signs Temp Pulse Resp BP Pulse Ox 08/06/20 09:40 97.5 F L 89 16 147/112 H 99 Inital Vital Signs reviewed: Yes General: Well nourished Head: Normocephalic Eyes: EOMI ENT: Moist mucous membranes Neck: Supple Cardiovascular: Regular rate, Regular rhythm Respiratory: No distress, CTA bilaterally Abdomen: Soft Extremities: - - Obvious left wrist deformity, palpable radial pulse, brisk capillary refill, sensation intact to light touch distally, no tenderness at the hand elbow shoulder or clavicle, active full range of motion of the right upper and bilateral lower extremities without pain Skin: Normal color Neurological: Alert Psychological: - - Anxious Diagnostic/Tx/Re-eval 08/06/20 10:06 Wrist min 3 Views [RAD] Stat 08/06/20 11:15 Xray Wrist [Wrist 2 Views] [RAD] Stat - Medical Decision Making Patient was given a [place] for pain. Left wrist x-ray shows a comminuted displaced distal left radius fracture. Patient underwent a hematoma block with 10 cc of 1% lidocaine with no immediate complications and patient had good anesthesia. Patient was reduced with traction. She was placed in an [facility]- Glass wrist splint fabricated by the emergency physician and is neurovascularly intact after splint application. She was given a prescription for [place] and referred to orthopedics, Dr. Sarmiento, for outpatient follow-up. ED Disposition - Plan for ED Patient: Disposition: Home or Assisted Living Diagnosis: Wrist fracture, left Instructions: ED Fracture, Wrist, General Prescriptions: Hydrocodone Bitart/Apap 5-325 [[place] 5MG-325MG] 1 tab PO Q6H PRN PRN 3 Days #10 tab PRN Reason: Pain Prescription Printed Referrals: Billy Pulido III, MD [Primary Care Provider] - Sundar Sarmiento MD [STAFF PHYSICIAN] -
[2020-08-06] MEDS: HYDROcodone Bitartrate/Apap 5/325 Tablet PO (09:51)
[2020-08-06] MEDS: Lidocaine 1% (20 ml mdv) 20 ML Vial INFILT (10:04)
--- NOTE | 2020-08-06 10:06 | RAD_ITS ---
STUDY: X-RAY - LEFT WRIST REASON FOR EXAM: Female, 70 years old. LEFT WRIST PAIN AND DEFORMITY AFTER FALL. TECHNIQUE: 3 view(s) of the wrist were obtained. COMPARISON: None. FINDINGS: Comminuted fracture of the distal radial metaphysis with the dorsal facing. The fracture extends into the articular surface. Nondisplaced avulsion fracture of the ulnar styloid. Normal radiocarpal articulation. Normal distal radioulnar articulation. Normal carpal bones. Normal carpal articulations. Normal carpometacarpal articulation of the thumb. Normal second through fifth carpometacarpal articulations. Normal visualized metacarpal bones. Soft tissue swelling. RAD/Wrist min 3 Views IMPRESSION: Comminuted fracture of the distal radial metaphysis with dorsal facing. Electronically Signed: William Dejesus, at 10:28 EST , Service support ,
--- NOTE | 2020-08-06 11:15 | RAD_ITS ---
STUDY: X-RAY - LEFT WRIST REASON FOR EXAM: Female, 70 years old. POST REDUCTION TECHNIQUE: 2 view(s) of the wrist were obtained. COMPARISON: Comparison is made with prior study done earlier today. FINDINGS: Satisfactory reduction of the comminuted fracture of the distal radial metaphysis. Normal radiocarpal articulation. Normal distal radioulnar articulation. Normal carpal bones. Normal carpal articulations. Normal carpometacarpal articulation of the thumb. Normal second through fifth carpometacarpal articulations. Normal visualized metacarpal bones. Soft tissue swelling. RAD/Wrist 2 Views IMPRESSION: Satisfactory reduction of the comminuted fracture of the distal radial metaphysis. Electronically Signed: William Dejesus, at 11:31 EST , Service support ,
== END 2020-08-06 12:49 | disposition home or self-care (01) ==
PROVIDERS: Emergency Provider Emergency Medicine; PCP Family Medicine
DX: S52.502A Unspecified fracture of the lower end of left radius, initial encounter for closed fracture (principal); W00.0XXA Fall on same level due to ice and snow, initial encounter; Y93.9 Activity, unspecified; Y92.9 Unspecified place or not applicable; E03.9 Hypothyroidism, unspecified; Z85.850 Personal history of malignant neoplasm of thyroid; Z79.899 Other long term (current) drug therapy
CPT/HCPCS: 25605; 73100; 73110; 99283

== ENCOUNTER 2020-08-17 12:21 | Day surgery (SDC) | payer MEDICARE, SELFPAY ==
--- NOTE | 2020-08-14 10:43 | EKG12_ITS ---
Test Reason : PRE OP Blood Pressure : / mmHG Vent. Rate : 082 BPM Atrial Rate : 082 BPM P-R Int : 146 ms QRS Dur : 084 ms QT Int : 370 ms P-R-T Axes : 048 008 057 degrees QTc Int : 432 ms Normal sinus rhythm Normal ECG Confirmed by MADDI SALDANA, ADRIANNA ([id number]), manager editorial SUDARSHAN GARRISON ([id number]) on 08/20/2020 8:24:45 AM Referred By: Sundar Sarmiento Confirmed By:ADRIANNA LINDA MD
[2020-08-17] VITALS (10 sets, daily range): BP systolic 137–162; BP diastolic 70–104; PULSE 88–111; RESP 16; TEMP 36.8–37.3; O2SAT 93–100; BMI 21.9
[2020-08-17] MEDS: Lactated Ringers 1,000 ML 100 ML IV (13:00)
--- NOTE | 2020-08-17 14:30 | RAD_ITS ---
STUDY: X-RAY - LEFT WRIST REASON FOR EXAM: Female, 70 years old. ORIF left wrist TECHNIQUE: 5 view(s) of the wrist were obtained. COMPARISON: 08/06/2020 FINDINGS: Fluoroscopy of the left wrist was utilized and operating room and 5 images made of for interpretation.. RAD/Wrist min 3 Views IMPRESSION: Fluoroscopy during surgery. Electronically Signed: Harman Skaggs MD at 16:24 EST Tel , Service support ,
[2020-08-17] MEDS: Cefazolin 1 GM/50 ML BAG IV (14:48)
--- NOTE | 2020-08-17 16:06 | PRO.PCM_ITS ---
Procedure Report Date of Procedure: 08/17/20 Preoperative diagnosis: Left distal radius fracture comminuted Colles', 4 part Preoperative diagnosis: Same Operation: Open reduction internal fixation left distal radius fracture Surgeon: Dr. Sundar Sarmiento Estate Agent: Leslie Dc PA-C Anesthesia general Medications: Ancef Complications: None EBL: Minimal Indications for surgery: Please refer to dictated history and physical exam assistant professor of nursing, physician engineer assistant was vital throughout the entire case. She help with patient positioning, reduction of fracture, maintenance of fracture reduction, exposure, plate and screw application and insertion, wound closure. Also with bandage and splint application. Without salesperson surgical appliances surgical time would have been increased. Surgical outcome could have been less optimal. Procedure: After obtaining appropriate informed consent patient was taken to the operating room. Appropriate timeout was performed. Well-padded tourniquet applied to the operative upper arm. Ancef given IV. SCDs on lower extremities. Patient placed under general anesthesia. Reduction was attempted. Adequate closed reduction could not be obtained or maintained. Operative upper extremity was prepped padded draped in usual orthopedic sterile fashion for the procedure. Tourniquet was applied to 250 mmHg after the limb was exsanguinated. Volar approach was carried out longitudinally just over the FCR tendon. Careful dissection through skin subcutaneous tissue brought us down onto the FCR tendon. We took the FCR tendon ulnarly and the radial artery and soft tissues radially. This brought us down onto the pronator quadratus. This was sharply dissected off the bone radially. Fracture site was identified. Irrigated. Traction and manipulation with the help of the engineer assistant, fracture was nearly anatomically reduced. Volar AccuMed, Accu lock standard left VDR plate applied. And verified radiographically. Held in place with 2 K wires. 15? kickstand use proximally. We filled the distal row with locking screws in the plate under standard technique. We then removed the kickstand and applied the plate to the bone proximally and held it in the slotted hole with one screw, nonlocking screw. X-ray taken AP lateral and oblique showing very nice reduction and pl acement of the hardware. 2 locking screws were placed in the radial styloid through the guide system. Further locking screw was placed in the distal portion of the plate. Length verified. 1 further nonlocking screws were placed in the proximal plate. The most distal screw in the shaft portion of the plate was a locking screw. We verified our reduction under multiple x-ray views multiple, many of which were saved. Screw guide system for the plate removed. Wound was irrigated. Tourniquet let down. Bleeding controlled with the Bovie. No undue bleeding noted. Pronator quadratus repaired with 2-0 Vicryl over the plate. Skin repaired with interrupted inverted 2-0 Vicryl. Skin prep and Steri-Strips applied. Well-padded volar splint and dorsal splint applied. Sling applied. She was awoken from her anesthetic and transferred back to room bed in recovery room in satisfactory condition. This note was generated with [employer] dictation software. It may contain incorrect words, spelling, and punctuation that were not noted in checking the note before signing.
[2020-08-17] MEDS: Ondansetron 4 MG/2 ML Vial IV (18:37)
== END 2020-08-17 20:09 | disposition home or self-care (01) ==
LOC: SDC 12:21 → AC 12:22
PROVIDERS: PCP Family Medicine; Referring Provider Orthopaedic Surgery; Visit Provider Orthopaedic Surgery
PROC: (CPT 25607; principal; 2020-08-17 13:45)
DX: S52.532A Colles' fracture of left radius, initial encounter for closed fracture (principal); Z20.828 Contact with and (suspected) exposure to other viral communicable diseases; W00.0XXA Fall on same level due to ice and snow, initial encounter; Y93.9 Activity, unspecified; Y92.9 Unspecified place or not applicable; I10 Essential (primary) hypertension; Z78.0 Asymptomatic menopausal state; Z85.850 Personal history of malignant neoplasm of thyroid; Z79.899 Other long term (current) drug therapy
CPT/HCPCS: 01830; 25607; 73110; 76000; 87426; 93005; C1713; C9803; J7120; J2405

== ENCOUNTER 2020-08-18 01:17 | Emergency (ER) | payer MEDICARE, SELFPAY ==
[2020-08-17 12:46] VITALS: BMI 21.9
[2020-08-18 01:19] VITALS: PULSE 126; RESP 17; TEMP 36.2; O2SAT 97; BMI 23.5
--- NOTE | 2020-08-18 01:20 | EKG12_ITS ---
Test Reason : NAUSEA Blood Pressure : / mmHG Vent. Rate : 096 BPM Atrial Rate : 096 BPM P-R Int : 166 ms QRS Dur : 084 ms QT Int : 372 ms P-R-T Axes : 050 006 044 degrees QTc Int : 469 ms Normal sinus rhythm Normal ECG Confirmed by GONZALES SALDANA, MOISES ([id number]), video editor RENZO BRADY ([id number]) on 08/26/2020 10:13:19 AM Referred By: JEFF Confirmed By:DEION ROLON MD
[2020-08-18 01:27] VITALS: BP 165/77
[2020-08-18] MEDS: Ondansetron 4 MG/2 ML Vial IV (01:38)
[2020-08-18] MEDS: dexAMETHasone 10 MG/ML Vial IV (01:38)
[2020-08-18 01:41] LABS: Absolute Lymphocyte Count 1.06 X10^3/uL (0.83-4.51); Absolute Neutrophil Count 13.4 X10^3/uL (2.0-7.7); Basophil# 0.02 X10^3/uL; Basophil% 0.1 % (0-1); Hematocrit 36.4 % (37-47); Hemoglobin 12.1 g/dL (12.0-15.0); Lymphocyte # 1.06 X10^3/ul (4.0); Lymphocyte % 7.1 % (19-41); Mean Corp Hgb Conc 33.2 g/dL (32-36); Mean Corpuscular Hgb 27.9 pg (27.0-32.0); Mean Corpuscular Volume 84.1 fL (81-99); Mean Platelet Vol. 10.1 fl (6.2-12.0); Monocyte# 0.36 X10^3/uL; Monocyte% 2.4 % (0-10); NRBC Flagged by Analyzer 0 % (0-5); Neutrophil # 13.43 X10^3/uL (2.7-7.7); Neutrophil % 89.5 % (47-70); Platelet Count 407 K/mm3 (150-450); RBC Distribution Width CV 12.9 % (11.6-14.6); RBC Distribution Width SD 39.4 fl (35.1-43.9); Red Blood Count 4.33 M/mm3 (4.2-5.4)
--- NOTE | 2020-08-18 01:55 | ED.DCSUM_ITS ---
History of Present Illness Chief Complaint: Sore Throat Informant: Patient Onset: Today Context: Gradual Onset Timing: Continuous Current Severity: Moderate Maximum Severity: Severe Narrative: Patient is a 70-year-old female presents to the emergency department with sore throat, nausea, and vomiting. Patient had outpatient wrist surgery today. She had a distal radius fracture that was fixed. She did have general anesthesia and was intubated. She was discharged from the PACU. She states she got home, and had a few episodes of emesis. She states she feels very nauseated. She also feels like her throat is very swollen. She denies any trouble breathing. She denies any systemic symptoms. She has not had chest pain. She states she did have similar reaction to anesthesia in the past. Prior similar symptoms: Yes Recent Illness/Hospitalization: Yes Past Medical History - Allergies and Home Meds Allergies/Adverse Reactions: Allergies ciprofloxacin [From Cipro] Allergy (Verified 08/18/20 01:18) Hives ciprofloxacin HCl [From Cipro] Allergy (Verified 08/18/20 01:18) Hives Sulfa (Sulfonamide Antibiotics) Allergy (Verified 08/18/20 01:18) Hives tramadol Allergy (Verified 08/18/20 01:18) Anaphylaxis valsartan Allergy (Verified 08/18/20 01:18) Swelling codeine Adverse Reaction (Verified 08/18/20 01:18) Vomiting hydrocodone Adverse Reaction (Verified 08/18/20 01:18) Vomiting propoxyphene napsylate [From Darvocet-N] Adverse Reaction (Verified 08/18/20 01:18) Vomiting Primary Care Physician: Billy Pulido III, MD [Primary Care Provider] - Prior records reviewed: Yes Past Medical History: - - Hypertension, hypothyroid Surgical History: noncontributory, - - Thyroidectomy Smoking Status: Never smoker Review of Systems General: Denies: Chills, Fever, Sweats Eyes: Denies: Visual changes - bilaterally, Diplopia ENT: Denies: Rhinorrhea, Sore throat Cardiovascular: Denies: Chest pain, Palpitations Respiratory: Denies: Dyspnea, Cough, Dyspnea on exertion Gastrointestinal: Reports: Nausea, Vomiting. Denies: Abdominal pain, Diarrhea, Melena, Hematochezia Genitourinary: Denies: Dysuria, Hematuria, Frequency Musculoskeletal: Denies: Back pain, Extremity Pain Skin: Denies: Rash, Wounds Neurological: Denies: Headache, Weakness, Numbness Physical Exam Vital Signs/Narrative: Vital Signs Temp Pulse Resp BP Pulse Ox 08/18/20 01:27 165/77 H 08/18/20 01:19 97.2 F L 126 H 17 97 Inital Vital Signs reviewed: Yes General: Well nourished, Well developed, No Acute Distress Head: Normocephalic, Atraumatic Eyes: Perrl, EOMI ENT: Moist mucous membranes, No rhinorrhea, - - Posterior oropharynx is edematous, but no angioedema. There is some local trauma but no active bleeding. There is no trismus or stridor. Neck: Supple, Nontender Cardiovascular: Regular rate, Regular rhythm, No murmurs Respiratory: No distress, CTA bilaterally, Chest nontender Abdomen: Soft, Nontender, Nondistended, Normal bowel sounds Back: Nontender, Normal Inspection Extremities: Nontender, No edema Skin: Normal color, No rash Neurological: Alert, Oriented x3, Cranial nerves II-XII grossly intact, Normal Strength, Normal Sensation Psychological: Normal affect, Normal Mood Diagnostic/Tx/Re-eval Abnormal Lab Results 08/18/20 08/18/20 01:30 01:30 WBC 15.0 H RBC 4.33 Hgb 12.1 Hct 36.4 L MCV 84.1 MCH 27.9 MCHC 33.2 RDW Std Deviation 39.4 RDW Coeff of Sherin 12.9 Plt Count 407 MPV 10.1 Immature Gran % (Auto) 0.900 Neut % (Auto) 89.5 H Lymph % (Auto) 7.1 L Stonewall % (Auto) 2.4 Eos % (Auto) 0.0 Baso % (Auto) 0.1 Absolute Neuts (auto) 13.4 H Absolute Lymphs (auto) 1.06 Nucleated RBC % 0 Sodium 135 L Potassium 3.6 Chloride 101 Carbon Dioxide 25.0 Anion Gap 9 BUN 12 Creatinine 0.68 Estim Creat Clear Calc 43.92 Est GFR (MDRD) Af Amer 110 Est GFR (MDRD) Non-Af 91 BUN/Creatinine Ratio 17.5 Glucose 182 H Calcium 8.7 Total Bilirubin 0.60 AST 137 H ALT 115 H Alkaline Phosphatase 276 H Total Protein 7.9 Albumin 3.9 Globulin 4.0 Albumin/Globulin Ratio 1.0 - Rhythm Strip Rhythm Strip: Sinus Rhythm Rate: 90 Ectopy: None - EKG Follow-up EKG Interpretation: Sinus Rhythm, No Acute Injury Pattern Prior: Unchanged - Medical Decision Making Patient presents with nausea and vomiting after anesthesia. Patient does seem very anxious at baseline. I did obtain an EKG. Was sinus rhythm without acute ischemia. IV was established. Patient was given fluids and Zofran. Her posterior oropharynx is edematous, consistent with her intubation. There is no active bleeding or significant angioedema. She has no trismus or stridor. I did give the patient Decadron to help with her swelling. With Zofran, she was mildly improved. She was able to drink some fluids. However, when she got up to go to the restroom she became acutely nauseated again and had of 1 more episode of vomiting. Screening labs were obtained were unremarkable. Patient was given Ativan and Reglan. On reevaluation, the patient is now sleeping comfortably. There is no stridor. She has no hypoxia. Her tachycardia has resolved. My suspicion is that this is likely multifactorial from general anesthesia and from upper airway injury from intubation. I do feel that the patient is safe for discharge. I will keep her on antiemetics. She is comfortable with this plan of care. Impression 1. Nausea vomiting status post anesthesia 2. Iatrogenic pharyngitis ED Disposition - Plan for ED Patient: Instructions: ED Vomiting (Adult) Prescriptions: Ondansetron [Zofran Odt] 4 mg PO Q8H PRN PRN #10 tab PRN Reason: Nausea Prescription Printed Referrals: Billy Pulido III, MD [Primary Care Provider] -
[2020-08-18 01:57] LABS: AST(SGOT) 137 U/L (15-37); Alanine Aminotransfer ALT/SGPT 115 U/L (13-56); Albumin, Serum 3.9 g/dL (3.2-5.0); Alkaline Phosphatase 276 U/L (45-117); Anion Gap 9 (5-15); BUN 12 mg/dL (7-18); BUN/Creat Ratio 17.5 RATIO (10-20); Calcium,Total 8.7 mg/dL (8.5-10.1); Chloride 101 mmol/L (98-107); Creatinine, Serum 0.68 mg/dL (0.55-1.02); EST Glomerular Filtration Rate 91 mL/min (>60); Est Glom Filt Rate - Afr Amer 110 mL/min (>60); Estimated Creatinine Clearance 43.92 ml/min; Glucose 182 mg/dL (74-106); Potassium 3.6 mmol/L (3.5-5.1); Protein, Total 7.9 g/dL (6.4-8.2); Sodium Level 135 mmol/L (136-145)
[2020-08-18] MEDS: Metoclopramide 10 MG/2 ML Vial 2.5 MG IV (02:40)
[2020-08-18] MEDS: LORazepam 2 MG/ML Syringe 0.5 MG IV (02:40)
[2020-08-18 04:03] VITALS: BP 152/60; PULSE 92; RESP 16; O2SAT 97
== END 2020-08-18 04:03 | disposition home or self-care (01) ==
PROVIDERS: Emergency Provider Emergency Medicine; PCP Family Medicine
DX: R11.2 Nausea with vomiting, unspecified (principal); J02.9 Acute pharyngitis, unspecified; Z98.890 Other specified postprocedural states; I10 Essential (primary) hypertension; E03.9 Hypothyroidism, unspecified; Z79.899 Other long term (current) drug therapy
CPT/HCPCS: 80053; 85025; 93005; 96361; 96374; 96375; 99285; J7030; A4216; J2405

== ENCOUNTER → 2021-01-19 | Outpatient (CLI) | payer MEDICARE, SELFPAY ==
[2021-01-19 13:52] LABS: T4 Free Direct 1.29 ng/dL (0.76-1.46); Thyroid Stim Hormone (TSH) 5.49 uIU/mL (0.358-3.74)
== END | disposition home or self-care (01) ==
LOC: LABSPEC 12:41
PROVIDERS: PCP Family Medicine; Visit Provider Family Medicine
DX: E89.0 Postprocedural hypothyroidism (principal)
CPT/HCPCS: 84439; 84443

== ENCOUNTER → 2021-04-29 | Outpatient (CLI) | payer MEDICARE, SELFPAY ==
[2021-04-29 14:05] LABS: Lipase 64 U/L (73-393)
== END | disposition home or self-care (01) ==
LOC: LABSPEC 13:22
PROVIDERS: PCP Family Medicine; Referring Provider Family Medicine; Visit Provider Family Medicine
DX: R10.11 Right upper quadrant pain (principal); R11.0 Nausea
CPT/HCPCS: 83690

== ENCOUNTER → 2021-05-05 | Outpatient (CLI) | payer MEDICARE, SELFPAY ==
[2021-05-05 13:48] LABS: AST(SGOT) 25 U/L (15-37); Alanine Aminotransfer ALT/SGPT 30 U/L (13-56); Albumin, Serum 4.1 g/dL (3.2-5.0); Alkaline Phosphatase 116 U/L (45-117); Globulin 4.2 g/dL (2.2-4.2); Protein, Total 8.3 g/dL (6.4-8.2)
== END | disposition home or self-care (01) ==
LOC: LABSPEC 12:28
PROVIDERS: Visit Provider Family Medicine
DX: R74.8 Abnormal levels of other serum enzymes (principal)
CPT/HCPCS: 80076

== ENCOUNTER → 2021-05-21 | Outpatient (CLI) | payer MEDICARE, SELFPAY | END | disposition home or self-care (01) | LOC: LABSPEC 16:48 | PROVIDERS: Visit Provider Family Medicine | DX: Z12.11 Encounter for screening for malignant neoplasm of colon (principal) | CPT/HCPCS: 82274 ==

== ENCOUNTER → 2021-06-04 | Outpatient (CLI) | payer MEDICARE, SELFPAY ==
[2021-06-04 13:46] LABS: T4 Free Direct 1.75 ng/dL (0.76-1.46); Thyroid Stim Hormone (TSH) 0.11 uIU/mL (0.358-3.74)
[2021-06-07 16:55] LABS: Thyroglobulin Antibody < 1.0 IU/mL (0.0-0.9)
== END | disposition home or self-care (01) ==
LOC: LABSPEC 12:58
PROVIDERS: Referring Provider Family Medicine; Visit Provider Family Medicine
DX: E03.9 Hypothyroidism, unspecified (principal); Z85.850 Personal history of malignant neoplasm of thyroid
CPT/HCPCS: 84439; 84443; 86800

== ENCOUNTER → 2021-07-08 | Outpatient (CLI) | payer MEDICARE, SELFPAY ==
[2021-07-08 13:11] LABS: Thyroid Stim Hormone (TSH) 0.12 uIU/mL (0.358-3.74)
== END | disposition home or self-care (01) ==
LOC: LABSPEC 12:00
PROVIDERS: Referring Provider Family Medicine; Visit Provider Family Medicine
DX: E03.9 Hypothyroidism, unspecified (principal)
CPT/HCPCS: 84443

== ENCOUNTER → 2021-08-30 | Outpatient (CLI) | payer MEDICARE, SELFPAY ==
[2021-08-30 14:44] LABS: Thyroid Stim Hormone (TSH) 0.13 uIU/mL (0.358-3.74)
== END | disposition home or self-care (01) ==
LOC: LABSPEC 12:24
PROVIDERS: Referring Provider Family Medicine; Visit Provider Family Medicine
DX: E89.0 Postprocedural hypothyroidism (principal)
CPT/HCPCS: 84443

== ENCOUNTER 2021-09-07 16:47 | Outpatient (CLI) | payer MEDICARE, SELFPAY ==
[2021-09-07 17:13] LABS: Bacteria 0 SEEN /hpf (None Seen); Mucous, Urine 0 SEEN /hpf (<or=2+); Red Blood Cells-Urine 0 SEEN /hpf (0-5)
[2021-09-07 17:27] LABS: Color, Urine Yellow (Yellow); Glucose, Dipstick Normal (Normal); Ketone-Dipstick Negative (Negative); Leukocyte Esterase-Dipstick 100 /ul (Negative); Nitrite-Dipstick Negative (Negative); Occult Blood-Urine Negative /ul (Negative); Protein-Dipstick 15 mg/dl (Negative); Urine Bilirubin Dipstick Negative (Negative); Urine Clarity Clear (Clear); Urine Urobilinogen Normal (Normal)
[2021-09-07 17:58] LABS: Squamous Epithelial Cells - UA 5-10 SEEN /hpf (5-10); White Blood Cells 0-5 SEEN /hpf (0-5)
== END 2021-09-07 23:59 | disposition short-term general hospital (02) ==
LOC: LABSPEC 16:49
PROVIDERS: Visit Provider Nurse Practitioner Family
DX: R31.0 Gross hematuria (principal)
CPT/HCPCS: 81001; 87086; 87088